=== PATIENT | male | born 1935 | race Caucasian/White ===

== ENCOUNTER 2020-01-15 10:16 | Emergency (ER) | payer MEDICARE, OTHER, SELFPAY ==
[2020-01-15 09:59] VITALS: BP 176/120; PULSE 87; RESP 16; O2SAT 96; BMI 28.8
--- NOTE | 2020-01-15 10:07 | ED_ITS ---
Entered by Shirley Groves, acting as scribe for Itz David MD HPI - Neuro Symptoms/Deficit General: Chief Complaint: Neuro Symptoms/Deficit Stated Complaint: slurred speech,AMS Time Seen by Provider: 01/15/20 10:11 Source: patient, family (son), EMS and old records reviewed Mode of arrival: EMS Limitations: other (poor historian) History of Present Illness: Time: 08:45 Last Observed Normal: 08:45 Timing confirmed by: family member Location: speech (expressive aphasia) History of same: Yes (TIA hx) Severity: moderate Relieving factors: none Exacerbating factors: none Context: gradual onset Associated symptoms: Reports weakness (mild bilateral legs); Deny headache(s) or vertigo Treatments Prior to Arrival: other (IV by EMS) Review of Systems General: Reports: 10 or more systems reviewed and unremarkable except in HPI and below Neuro: Reports: difficulty communicating thoughts (expressive aphasia (I could think of it but it came out a jumble)); Denies: headache, numbness in extremities, weakness in extremities, changes in sensation, lack of coordination, difficulty walking, vertigo, confusion, behavioral changes, seizure-like activity, involuntary movements or restless legs PFSH ED PFSH: Social History Smoking and tobacco status: former smoker NIH stroke score NIHSS: Limb Ataxia - 7: Absent (1) Best Language - 9: Mild/Moderate Aphasia (1) Physical Exam Const: COMMON NORMALS: no apparent distress, oriented x3, no limitations, alert and well nourished EXAM LIMITATIONS: no altered mental status GENERAL APPEARANCE: cooperative and well kempt ORIENTATION/CONSCIOUSNESS: Yes awake, Yes oriented to person, Yes oriented to place and Yes oriented to time; not confused HENMT: COMMON NORMALS: normocephalic, head/scalp atraumatic, external ears normal and external nose normal HEAD & SCALP: normal to inspection, normocephalic and atraumatic FACE & SINUS: normal facial exam and face symmetric NOSE: external nose normal EXTERNAL EAR: Yes external ears normal MOUTH: lip normal; no muffled voice Eye: COMMON NORMALS: PERRL, EOMs intact bilaterally and conjunctivae normal GENERAL EYE: normal appearance of both eyes CONJUNCTIVA: Yes conjunctivae normal PUPIL: Yes PERRL and Yes pinpoint bilaterally Neck/C-Spine: COMMON NORMALS: no meningeal signs and no JVD GENERAL: Yes normal visual inspection and Yes trachea midline Chest: COMMONS NORMALS: inspection of chest normal Resp: COMMON NORMALS: normal respiratory effort, no retractions, no use of accessory muscles and clear to auscultation bilaterally EFFORT & INSPECTION: Yes able to speak in complete sentences and Yes symmetric chest movement AUSCULTATION: clear to auscultation bilaterally Cardio: COMMON NORMALS: no JVD and regular rate RATE: regular rate RHYTHM: abnormal rhythm with ectopic beats PERIPHERAL PULSES: radial pulses present GI: COMMON NORMALS: soft to palpation INSPECTION: Yes normal to inspection PALPATION: Yes soft, No tender and No guarding Back/Pelvis: COMMON NORMALS: thoraco-lumbar ROM normal Extremity: COMMON NORMALS: normal to inspection GENERAL: Yes normal exam except as noted Neuro: COMMON NORMALS: oriented x3, moves all extremities, no focal motor deficits and no sensory deficits noted SENSORIUM/ORIENTATION: Yes alert, Yes oriented to person, Yes oriented to place and Yes oriented to time MENINGEAL SIGNS: Yes no meningeal signs CRANIAL NERVES: Yes CN normal except as noted COORDINATION/BALANCE: [id number] test normal and No jaiz-lp-[id number] test normal (hard to do with gout in right knee vs ataxia RLE) SPEECH: expressive aphasia (very mild at this point, few items he cannot recall name) GAIT: Yes antalgic (at baseline per family) SENSORY EXAM: No sensory level loss detected MOTOR EXAM: strength 5/5 throughout, no tremor noted, no asterixis, muscle tone normal throughout and No strength abnormal COORDINATION: ibeyws-dw-[id number] test normal and [id number]-[id number] test abnormal (hard to do with gout in right knee vs ataxia RLE) Psych: COMMON NORMALS: mental status grossly normal, thought process normal, cooperative, affect normal and speech normal APPEARANCE: Yes well kempt SPEECH: Yes normal speech THOUGHT PROCESS: normal thought process Skin: COMMON NORMALS: no rashes or lesions noted, skin turgor normal and no jaundice GENERAL SKIN EXAM: no rashes or lesions noted and turgor normal Course Vital Signs: Vital signs: Vital Signs Pulse Rate 87 01/15/20 09:59 Respiratory Rate 16 01/15/20 09:59 Blood Pressure 176/120 01/15/20 09:59 Pulse Oximetry 96 01/15/20 09:59 MDM - Neuro Symptoms/Deficit MDM Narrative: Medical decision making narrative: Patient's NIH score is 2. He gets 1 point for mild expressive aphasia and one-point for mild ataxia in the right lower extremity. However, his ataxia in the right lower extremity may be due to hip and knee pain. He does not have any other focal deficits. I discussed the case with Dr. Pagan. We both agree that the patient is not a good candidate for TPA. 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 He is on all the appropriate medications. CT scan of the head was read by the radiologist and myself. He has chronic changes but no acute findings. Chest x- ray stable. Labs essentially at their baseline. I consulted with the patient and the son. The patient was ambulated. There was no lasting deficit noted by the family. Symptoms seem to resolve around 1015. The patient and his son were given options for admission for observation but they both would prefer discharge as the patient is staying at a residential facility and has rapid access to medical care if required. Lab Data: Labs: Lab Results 01/15/20 01/15/20 01/15/20 Range/Units 10:30 10:30 10:30 WBC 7.4 (4.0-10.0) 10^3/ uL RBC 4.13 (4.1-5.3) 10^6/u L Hgb 11.7 (11.7-16.6) g/dL Hct 38.6 L (42.0-52.0) % MCV 93.5 (80-94) fL MCH 28.3 (28.0-34.0) pg MCHC 30.3 (30.0-36.0) g/dL RDW 14.9 (12.1-15.1) % Plt Count 211 (130-400) 10^3/c mm MPV 12.0 H (7.4-10.4) fL Neut % (Auto) 56.6 % Lymph % (Auto) 26.8 % [place] % (Auto) 11.3 % Eos % (Auto) 4.4 % Baso % (Auto) 0.5 % Neut # (Auto) 4.2 (1.8-7.7) 10^3/u L Lymph # (Auto) 2.0 (0.8-4.8) 10^3/u L [place] # (Auto) 0.8 (0.2-0.9) 10^3/u L Eos # (Auto) 0.3 (0.0-0.8) 10^3/u L Baso # (Auto) 0.0 (0.0-0.1) 10^3/u L Nucleated RBC % (a uto) 0 % Nucleated RBCs # 0.0 /100WBC PT 13.60 H (10.5-13.3) SECO NDS INR 1.01 (0.8-1.2) APTT 30.1 (23.9-36.7) SECO NDS Sodium 139 (136-145) mmol/L Potassium 3.7 (3.5-5.1) mmol/L Chloride 99 (98-107) mmol/L Carbon Dioxide 26 (22-29) mmol/L Anion Gap 17.7 (5-19) BUN 19 (8-23) mg/dL Creatinine 1.1 (0.7-1.2) mg/dL Glucose 145 H (65-115) mg/dL Calcium 9.5 (8.5-10.5) mg/dL Total Bilirubin 0.4 (0.15-1.2) mg/dL AST 11 (0-40) U/L ALT 6 (0-41) U/L Alkaline Phosphata se 95 (40-130) IU/L Total Protein 7.8 (6.6-8.7) g/dL Albumin 3.7 (3.5-5.2) g/dL Globulin 4.1 (1.3-4.6) g/dL Discharge Plan Discharge Patient Disposition: Xfer SNF Clinical Impression: Transient cerebral ischemia Qualifiers: Transient cerebral ischemia type: carotid artery syndrome (hemispheric) Qualified Code(s): G45.1 - Carotid artery syndrome (hemispheric) Condition: Stable Discharge Orders: Discharge Order (Routine); Ordered 01/15/20 Ordered By: Itz David Referrals: Fran Garcia DO [Primary Care Provider] - 1 week (F/u ED visit for TIA: symptoms were expressive aphasia for one hour) Discharge Diet: Usual diet Discharge Activity: Resume usual activity Patient Instructions: Transient Ischemic Attack (ED) Coding Level of Care Code ED Adjunct Instructor for g Fwd Exam Comprehensive The documentation recorded by the Germain elkins Bridget Annette, accurately reflects the service I personally performed and the decisions made by me, Izt David MD Jan 15, 2020 10:16
--- NOTE | 2020-01-15 10:09 | CT_ITS ---
WS: [id number] CT HEAD NONCONTRAST HISTORY: POSS CVA TECHNIQUE: Contiguous axial imaging performed through the brain in 2.5 mm imaging. Bone and soft tiss ue windows. Sagittal and coronal reformats reviewed. All CT scans at [facility] use at le ast one of these dose optimization techniques: automated exposure control; mA and/or kV adjustment pe r patient size (includes targeted exams where dose is matched to clinical indication); or iterative r econstruction. DLP: 903.57 mGy-cm. COMPARISON: 10/19/2019 No acute intracranial hemorrhage, midline shift or mass effect. Moderate atrophy with moderate chronic microvascular ischemic changes. There are numerous small lacun ar infarcts in the basal ganglia and external capsules and along the insular ribbons. No significant progression of disease. Ventricles: Dilated ventricles and extra-axial spaces on the basis of atrophy. Paranasal sinuses: As visualized are clear. Mastoid air cells: Well pneumatized. Calvarium and scalp: Skull is intact with no soft tissue edema or swelling. Notified Itz David MD at 01/15/2020 10:[address]/CT head wo con* [id number] IMPRESSION: 1. No acute intracranial hemorrhage, edema or midline shift. 2. Moderate atrophy with chronic ischemic changes and prior lacunar.
--- NOTE | 2020-01-15 10:18 | XR_ITS ---
WS: [id number] XR chest 1V portable [id number] REASON FOR EXAM: stroke w/u FINDINGS: Arteriosclerotic changes in the arch of the aorta. Sternotomy changes. The lung burgos appear to be well aerated. No congestion, pneumonia, pneumothorax, or mass effect. XR/XR chest 1V portable [id number] IMPRESSION: Arteriosclerotic changes Previous coronary bypass.
[2020-01-15 10:37] LABS: Basophils % 0.5 %; Eosinophils # 0.3 10^3/uL (0.0-0.8); Eosinophils % 4.4 %; Hematocrit 38.6 % (42.0-52.0); Hemoglobin 11.7 g/dL (11.7-16.6); Lymphocytes % 26.8 %; Mean Corpuscular HGB Conc 30.3 g/dL (30.0-36.0); Mean Corpuscular Hemoglobin 28.3 pg (28.0-34.0); Mean Corpuscular Volume 93.5 fL (80-94); Monocytes # 0.8 10^3/uL (0.2-0.9); Monocytes % 11.3 %; Neutrophils # 4.2 10^3/uL (1.8-7.7); Neutrophils % 56.6 %; Nucleated Red Blood Cells % 0 %; Platelet Count 211 10^3/cmm (130-400); Red Blood Count 4.13 10^6/uL (4.1-5.3); Red Cell Distribution Width 14.9 % (12.1-15.1); White Blood Count 7.4 10^3/uL (4.0-10.0)
[2020-01-15 10:46] LABS: INR 1.01 (0.8-1.2)
[2020-01-15 10:47] LABS: Partial Thromboplastin Time 30.1 SECONDS (23.9-36.7)
--- NOTE | 2020-01-15 10:48 | PC.NURSE ---
Ambulation Patient and son report patient has gout flare up in right knee. Knee is swollen and red. Patient ambulated to check for new ataxia given current TIA symptoms. Patient ambulated 20 ft with standby assist, obvious weakness to right leg. Patient and son report this is normal walking for him and that he is not weaker than normal. RLE ataxia likely due to gout flare up. notified.
[2020-01-15 10:54] LABS: Alanine Aminotransferase 6 U/L (0-41); Albumin Level 3.7 g/dL (3.5-5.2); Alkaline Phosphatase 95 IU/L (40-130); Anion Gap 17.7 (5-19); Aspartate Amino Transferase 11 U/L (0-40); Blood Urea Nitrogen 19 mg/dL (8-23); Calcium 9.5 mg/dL (8.5-10.5); Carbon Dioxide 26 mmol/L (22-29); Chloride 99 mmol/L (98-107); Globulin 4.1 g/dL (1.3-4.6); Glucose 145 mg/dL (65-115); Potassium 3.7 mmol/L (3.5-5.1); Sodium 139 mmol/L (136-145); Total Bilirubin 0.4 mg/dL (0.15-1.2); Total Protein 7.8 g/dL (6.6-8.7)
[2020-01-15] MEDS: aspirin 325 mg Tablet PO (11:31)
--- NOTE | 2020-01-15 11:41 | PC.NURSE ---
Patient states he feels resolved. Family at bedside and unable to detect speech disturbance. Repeat NIHSS: Zero
[2020-01-15 11:52] VITALS: BP 140/85; PULSE 70; RESP 15; O2SAT 97
== END 2020-01-15 11:53 | disposition skilled nursing facility (03) ==
PROVIDERS: Emergency Provider Emergency Medicine; Family Provider Family Medicine; PCP Family Medicine
DX: G45.9 Transient cerebral ischemic attack, unspecified (principal); Z87.891 Personal history of nicotine dependence
CPT/HCPCS: 36415; 70450; 71045; 80053; 85025; 85610; 85730; 99282; 99284

== ENCOUNTER 2020-06-03 11:39 | Emergency (ER) | payer MEDICARE, OTHER, SELFPAY ==
[2020-06-03 11:40] VITALS: BMI 29.4
[2020-06-03 11:45] VITALS: BP 189/99; PULSE 72; RESP 18; TEMP 36.8; O2SAT 95
--- NOTE | 2020-06-03 11:49 | ED_ITS ---
HPI - Fall General: Chief Complaint: Fall Stated Complaint: HEMATOMA Time Seen by Provider: 06/03/20 11:45 History of Present Illness: HPI Narrative: 84-year-old male presents via EMS after a fall at the group home. He stumbled and then fell forward he hit his head on the carpet. He is a large hematoma there. He denies full loss of consciousness he states I just fell . He said he stumbled and then in trying to catch his balance he had a fall forward where he felt like he could not maintain his balance and took several steps forward before he actually fell. complaint: fall Onset (ago): minute(s) Fall from: standing Fall witnessed: yes, by living facility staff Place fall occurred: group home/SNF Loss of consciousness: None Prolonged down time: no Symptoms prior to fall: none Context: tripped/slipped Location of injury: head Severity: moderate Associated symptoms-after fall: Reports no associated symptoms; Denies abdominal pain or chest pain Review of Systems Const: Denies: fever(s), chills, body aches, change in appetite, fatigue or malaise ENMT: Denies: throat pain, ear or mastoid pain, nasal discharge or nasal congestion Card: Denies: chest pain, edema, dyspnea on exertion or orthopnea Resp: Denies: dyspnea, productive cough or non-productive cough GI: Denies: abdominal pain, nausea, vomiting, hematemesis, coffee ground emesi s, diarrhea, constipation, bloating, hematochezia or melena : Denies: flank pain, dysuria, urinary frequency or urinary urgency Skin/Breast: Denies: rash or pruritus PFSH ED PFSH: Medical History (Updated 06/03/20 @ 13:33 by Jean Grubbs DO) CVA (cerebral vascular accident) Diabetes Hyperlipidemia Hypertension Surgical History (Updated 06/03/20 @ 13:34 by Jean Grubbs DO) History of coronary artery bypass graft 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 Social History Smoking and tobacco status: former smoker Physical Exam Const: COMMON NORMALS: no acute distress GENERAL APPEARANCE: cooperative and comfortable ORIENTATION/CONSCIOUSNESS: Yes awake, Yes oriented to person, Yes oriented to place and Yes oriented to time HENMT: COMMON NORMALS: normocephalic, atraumatic, hearing grossly normal bilaterally, external ears normal, EAC's normal, TM's normal bilaterally, Normal nasal mucous membranes and turbinates present, moist oral mucous membranes and oropharynx normal HEAD & SCALP: normocephalic and atraumatic NOSE: Normal nasal mucous membranes and turbinates present EXTERNAL EAR: Yes external ears normal EXTERNAL AUDITORY CANAL: EAC's normal TYMPANIC MEMBRANE: TM's normal bilaterally Eye: COMMON NORMALS: Equal, round and reactive pupils present, EOMs intact bilaterally, conjunctivae normal and no scleral icterus CONJUNCTIVA: Yes conjunctivae normal PUPIL: Yes Equal, round and reactive pupils present Neck/C-Spine: COMMON NORMALS: full ROM, no lymphadenopathy, supple and no JVD Lymph: LYMPHATIC: no lymphadenopathy noted and no lymphedema noted Resp: COMMON NORMALS: normal respiratory effort, No retractions, No use of accessory muscles and clear to auscultation bilaterally AUSCULTATION: clear to auscultation bilaterally Cardio: COMMON NORMALS: no JVD, regular rate, regular rhythm and No murmurs present (Cardio) RATE: regular rate RHYTHM: regular rhythm GI: COMMON NORMALS: Soft to palpation and No hepatosplenomegaly present AUSCULTATION: Yes normoactive bowel sounds PALPATION: Yes Soft to palpation, No Tenderness to palpation present (GI), No Guarding due to palpation present (GI) and Yes No hepatosplenomegaly present Extremity: COMMON NORMALS: normal to inspection, capillary refill normal, no clubbing, cyanosis or edema, no calf tenderness and no pedal edema Neuro: SENSORIUM/ORIENTATION: Yes oriented to person, Yes oriented to place and Yes oriented to time Skin: COMMON NORMALS: no rashes or lesions noted GENERAL SKIN EXAM: no rashes or lesions noted Course Vital Signs: Vital signs: Vital Signs Temperature 98.2 F 06/03/20 13:45 Pulse Rate 83 06/03/20 13:45 Respiratory Rate 16 06/03/20 13:45 Blood Pressure 160/84 06/03/20 13:45 Pulse Oximetry 97 06/03/20 13:45 MDM - Fall MDM Narrative: Medical decision making narrative: We will go and discharge patient back to the group home. Discussed with him that he will get significant bruising around the eyes and swelling he can use ice for that no change in medications. Lab Data: Labs: Lab Results 06/03/20 06/03/20 06/03/20 Range/Units 11:22 11:22 11:22 WBC 7.4 (4.0-10.0) 10^3/ uL RBC 4.30 (4.1-5.3) 10^6/u L Hgb 12.8 (11.7-16.6) g/dL Hct 41.8 L (42.0-52.0) % MCV 97.2 H (80-94) fL MCH 29.8 (28.0-34.0) pg MCHC 30.6 (30.0-36.0) g/dL RDW 14.8 (12.1-15.1) % Plt Count 256 (130-400) 10^3/c mm MPV 12.2 H (7.4-10.4) fL Neut % (Auto) 45.2 % Lymph % (Auto) 36.5 % [place] % (Auto) 11.0 % Eos % (Auto) 5.8 % Baso % (Auto) 0.8 % Neut # (Auto) 3.33 (1.8-7.7) 10^3/u L Lymph # (Auto) 2.7 (0.8-4.8) 10^3/u L [place] # (Auto) 0.8 (0.2-0.9) 10^3/u L Eos # (Auto) 0.4 (0.0-0.8) 10^3/u L Baso # (Auto) 0.1 (0.0-0.1) 10^3/u L Nucleated RBC % (a uto) 0 % Nucleated RBCs # 0.0 /100WBC PT 12.80 (10.5-13.3) SECO NDS INR 0.93 (0.8-1.2) APTT 27.7 (23.9-36.7) SECO NDS Sodium 141 (136-145) mmol/L Potassium 4.3 (3.5-5.1) mmol/L Chloride 99 (98-107) mmol/L Carbon Dioxide 30 H (22-29) mmol/L Anion Gap 16.3 (5-19) BUN 18 (8-23) mg/dL Creatinine 1.2 (0.7-1.2) mg/dL Glucose 103 (65-115) mg/dL Calculated Osmolal ity 289 (285-295) mOsm/k g Calcium 9.4 (8.5-10.5) mg/dL Total Bilirubin 0.3 (0.15-1.2) mg/dL AST 12 (0-40) U/L ALT 8 (0-41) U/L Alkaline Phosphata se 96 (40-130) IU/L Total Protein 7.4 (6.6-8.7) g/dL Albumin 4.3 (3.5-5.2) g/dL Globulin 3.1 (1.3-4.6) g/dL Discharge Plan Discharge Patient Disposition: Xfer Other Clinical Impression: Fall against object, Concussion without loss of consciousness Condition: Stable Referrals: Fran Garcia, [Primary Care Provider] - Discharge Diet: Usual diet Discharge Activity: Increase activity as tolerated Activity Restrictions/Additional Instructions: Follow-up with your primary care doctor as needed. Ice to forehead 20 minutes 4 times a day Discharge Date/Time: 06/03/20 13:50 Coding Level of Care Code ED Adult And Pediatric Neurologist for Jeanne Fwd Exam Comprehensive
--- NOTE | 2020-06-03 12:00 | CT_ITS ---
WS: [id number] CT HEAD NONCONTRAST HISTORY: Fall, closed head injury TECHNIQUE: Contiguous axial imaging performed through the brain in 2.5 mm imaging. Bone and soft tiss ue windows. Sagittal and coronal reformats reviewed. All CT scans at [facility] use at le ast one of these dose optimization techniques: automated exposure control; mA and/or kV adjustment pe r patient size (includes targeted exams where dose is matched to clinical indication); or iterative r econstruction. DLP: 1225.15 mGy.cm COMPARISON: 01/15/2020 No acute intracranial hemorrhage, midline shift or mass effect. Moderate atrophy with significant chronic microvascular ischemic changes. Extensive bilateral lacunar infarcts in the basal ganglia. Extensive chronic white matter ischemic disease. Ventricles: Ventricles and extra-axial spaces are prominent on the basis of atrophy. Paranasal sinuses: As visualized are clear. Mastoid air cells: Well pneumatized. Calvarium and scalp: No calvarial fracture. There is a large hyperdense scalp hematoma centered over the LEFT frontal bone. CT/CT head wo con* [id number] IMPRESSION: 1. No acute intracranial hemorrhage or edema. 2. Large LEFT frontal scalp hematoma. 3. Atrophy with extensive chronic ischemic disease and bilateral lacunar infar cts.
--- NOTE | 2020-06-03 12:00 | ECG_ITS ---
[facility] Test Date: 2020-06-03 Pat Name: Eric Fields Department: Room: Gender: Male Beaming Inspector: : 1935 Requested By: Jean Reese Order Number: [id number] Jessy MD: Mauricio Parikh M.D. Measurements Intervals [place] Rate: 71 P: 82 KS: 193 QRS: -23 QRSD: 118 T: 72 QT: 414 QTc: 451 Interpretive Statements SINUS RHYTHM BORDERLINE LEFT AXIS DEVIATION [QRS AXIS < -20] MODERATE INTRAVENTRICULAR CONDUCTION DELAY [110+ ms QRS DURATION] MODERATE VOLTAGE CRITERIA FOR LVH, CONSIDER NORMAL VARIANT [MEETS CRITERIA IN ONE OF: R(aVL), S(V1), R(V5), R(V5/V6)+S(V1)] NONSPECIFIC T-WAVE ABNORMALITY Compared to ECG 10/19/2019 15:11:01 Intraventricular conduction delay now present T-wave abnormality now present Electronically Signed On 06-04-2020 16:24:35 CDT by Mauricio Parikh M.D. [id number]
--- NOTE | 2020-06-03 12:10 | CT_ITS ---
WS: [id number] CT CERVICAL SPINE HISTORY: fall TECHNIQUE: Contiguous 2.5 mm axial imaging performed through the entire cervical spine. Sagittal and coronal reformats also performed. All CT scans at [facility] use at least one of these do se optimization techniques: automated exposure control; mA and/or kV adjustment per patient size (inc ludes targeted exams where dose is matched to clinical indication); or iterative reconstruction. DLP: 961.22 mGy.cm COMPARISON: MRI 01/19/2017 Increased in the cervical lordosis. Craniocervical junction is normally aligned. Lateral masses of C1 and C2 are aligned. Fusion between the LEFT facet joints at C2-3, C4-5 and C5-6. No acute fractures are identified. Vertebral body osteophytes encroach upon the LEFT lateral thecal sac at C3-4. Multile charly facet joint arthritis and osteophytic ridging resulting in multilevel mild to moderate bilateral foraminal stenosis. Lung apices are clear. CT/CT cervical spin wo con* [id number] IMPRESSION: 1. No acute cervical fracture. 2. 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
[2020-06-03 12:20] LABS: Basophils # 0.1 10^3/uL (0.0-0.1); Basophils % 0.8 %; Eosinophils # 0.4 10^3/uL (0.0-0.8); Eosinophils % 5.8 %; Hematocrit 41.8 % (42.0-52.0); Hemoglobin 12.8 g/dL (11.7-16.6); Lymphocytes # 2.7 10^3/uL (0.8-4.8); Lymphocytes % 36.5 %; Mean Corpuscular HGB Conc 30.6 g/dL (30.0-36.0); Mean Corpuscular Hemoglobin 29.8 pg (28.0-34.0); Mean Corpuscular Volume 97.2 fL (80-94); Mean Platelet Volume 12.2 fL (7.4-10.4); Monocytes # 0.8 10^3/uL (0.2-0.9); Neutrophils # 3.33 10^3/uL (1.8-7.7); Neutrophils % 45.2 %; Nucleated Red Blood Cells % 0 %; Platelet Count 256 10^3/cmm (130-400); Red Cell Distribution Width 14.8 % (12.1-15.1); White Blood Count 7.4 10^3/uL (4.0-10.0)
[2020-06-03 12:26] LABS: INR 0.93 (0.8-1.2)
[2020-06-03 12:27] LABS: Partial Thromboplastin Time 27.7 SECONDS (23.9-36.7)
[2020-06-03 12:33] LABS: Alanine Aminotransferase 8 U/L (0-41); Albumin Level 4.3 g/dL (3.5-5.2); Alkaline Phosphatase 96 IU/L (40-130); Anion Gap 16.3 (5-19); Aspartate Amino Transferase 12 U/L (0-40); Blood Urea Nitrogen 18 mg/dL (8-23); Calcium 9.4 mg/dL (8.5-10.5); Carbon Dioxide 30 mmol/L (22-29); Chloride 99 mmol/L (98-107); Globulin 3.1 g/dL (1.3-4.6); Glucose 103 mg/dL (65-115); Osmolality Calculated 289 mOsm/kg (285-295); Potassium 4.3 mmol/L (3.5-5.1); Sodium 141 mmol/L (136-145); Total Bilirubin 0.3 mg/dL (0.15-1.2); Total Protein 7.4 g/dL (6.6-8.7)
[2020-06-03 13:45] VITALS: BP 160/84; PULSE 83; RESP 16; TEMP 36.8; O2SAT 97
== END 2020-06-03 13:50 | disposition other institution (70) ==
PROVIDERS: Emergency Provider Family Medicine; PCP Family Medicine
DX: S06.0X0A Concussion without loss of consciousness, initial encounter (principal); W01.198A Fall on same level from slipping, tripping and stumbling with subsequent striking against other object, initial encounter; Z86.73 Personal history of transient ischemic attack (TIA), and cerebral infarction without residual deficits; E11.9 Type 2 diabetes mellitus without complications; E78.5 Hyperlipidemia, unspecified; I10 Essential (primary) hypertension; Z95.1 Presence of aortocoronary bypass graft; Z87.891 Personal history of nicotine dependence
CPT/HCPCS: 12345; 70450; 72125; 80053; 85025; 85610; 85730; 93005; 99282; 99283

== ENCOUNTER 2021-01-22 08:03 | Emergency (ER) | payer MEDICARE, OTHER, SELFPAY ==
[2021-01-22 08:04] VITALS: BP 169/87; PULSE 75; RESP 16; TEMP 36.8; O2SAT 94; BMI 28.6
--- NOTE | 2021-01-22 08:05 | CT_ITS ---
WS: [id number] CT HEAD TECHNIQUE: Noncontrast CT of the head obtained from the skullbase to the vertex. CLINICAL INFORMATION: Symptoms of Acute Stroke COMPARISON: June 03, 2020 DLP: All CT scans at [facility] use at least one of these dose optimization techniques: automat ed exposure control; mA and/or kV adjustment per patient size (includes targeted exams where dose is matched to clinical indication); or iterative reconstruction. FINDINGS: No evidence of intracranial hemorrhage or mass effect. Ventricular system and basal cisterns are sauer nt. Moderate small vessel changes with moderate parenchymal volume loss. Chronic lacunar infarcts in the periventricular white matter. No extra-axial fluid collections. No evidence of mass or mass effec t. Normal guardado-white differentiation. Paranasal sinuses and mastoid air cells are well aerated. .Normal visualized soft tissues. CT/CT head wo con* [id number] IMPRESSION: 1. No evidence of intracranial hemorrhage or mass effect. 2. Moderate small vessel changes. Moderate parenchymal volume loss. 3. No acute intracranial findings. Attempted Jean Grubbs DO at 01/22/2021 8:20 AM.
--- NOTE | 2021-01-22 08:05 | ECG_ITS ---
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 Measurements Intervals [place] Rate: 76 P: 98 SD: 176 QRS: -25 QRSD: 125 T: 122 QT: 389 QTc: 438 Interpretive Statements SINUS RHYTHM BORDERLINE LEFT AXIS DEVIATION [QRS AXIS < -20] MODERATE INTRAVENTRICULAR CONDUCTION DELAY [110+ ms QRS DURATION] MODERATE VOLTAGE CRITERIA FOR LVH, CONSIDER NORMAL VARIANT [MEETS CRITERIA IN ONE OF: R(aVL), S(V1), R(V5), R(V5/V6)+S(V1)] NONSPECIFIC T-WAVE ABNORMALITY Compared to ECG 06/03/2020 12:39:40 No significant changes Electronically Signed On 01-22-2021 18:56:28 [employer] by Josefina Villagomez M.D. [id number]
[2021-01-22 08:16] VITALS: BP 169/87; PULSE 77; RESP 18; TEMP 37.1; O2SAT 94
[2021-01-22 08:20] LABS: Basophils # 0.1 10^3/uL (0.0-0.1); Basophils % 0.6 %; Eosinophils # 0.4 10^3/uL (0.0-0.8); Eosinophils % 4.2 %; Hematocrit 40.4 % (42.0-52.0); Hemoglobin 12.6 g/dL (11.7-16.6); Lymphocytes # 1.6 10^3/uL (0.8-4.8); Lymphocytes % 19.8 %; Mean Corpuscular HGB Conc 31.2 g/dL (30.0-36.0); Mean Corpuscular Hemoglobin 30.4 pg (28.0-34.0); Mean Corpuscular Volume 97.6 fL (80-94); Mean Platelet Volume 12.5 fL (7.4-10.4); Monocytes # 0.7 10^3/uL (0.2-0.9); Neutrophils # 5.55 10^3/uL (1.8-7.7); Nucleated Red Blood Cells % 0 %; Platelet Count 201 10^3/cmm (130-400); Red Blood Count 4.14 10^6/uL (4.1-5.3); Red Cell Distribution Width 13.9 % (12.1-15.1); White Blood Count 8.3 10^3/uL (4.0-10.0)
[2021-01-22 08:25] LABS: Glucose Point of Care 135 mg/dL (70-110)
--- NOTE | 2021-01-22 08:25 | ED_ITS ---
HPI - Neuro Symptoms/Deficit General: Chief Complaint: Neuro Symptoms/Deficit Stated Complaint: Stroke like s/s Time Seen by Provider: 01/22/21 08:05 History of Present Illness: HPI Narrative: 85-year-old male presents to the emergency room with complaint of right-sided facial weakness. He has had some speech difficulties that started 3 days ago. He has had strokes in the past. 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 He denies chest pain denies shortness of breath. He does answer questions however he has difficulty with time and place. His son is at the bedside letter reviewed with him whether or not he would want aggressive interventions he defers to his father he says that as long as his father can say yes or no he would decide. Onset (ago): unknown Timing confirmed by: caregiver Location: right face Severity: mild Quality: weak Relieving factors: time Exacerbating factors: none Associated symptoms: Reports weakness; Deny chest pain, cough, diaphoresis, fevers/chills, headache(s), anorexia, malaise, nausea, seizures, short of breath, syncope, tingling, vertigo or vomiting Treatments Prior to Arrival: none Review of Systems Const: Denies: malaise or diaphoresis ENMT: Denies: throat pain, ear or mastoid pain, nasal discharge or nasal congestion Card: Denies: chest pain or syncope Resp: Denies: dyspnea, productive cough or non-productive cough GI: Denies: nausea or vomiting : Denies: flank pain, dysuria, urinary frequency or urinary urgency Skin/Breast: Denies: rash or pruritus Neuro: Denies: headache(s) or vertigo PFS ED PFSH: Medical History CVA (cerebral vascular accident) Diabetes Hyperlipidemia Hypertension Surgical History History of coronary artery bypass graft S/P percutaneous transluminal angioplasty ([employer]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 Social History Smoking and tobacco status: former smoker Physical Exam Const: COMMON NORMALS: no acute distress GENERAL APPEARANCE: cooperative and comfortable ORIENTATION/CONSCIOUSNESS: Yes oriented to person, Yes oriented to place and Yes oriented to time HENMT: COMMON NORMALS: normocephalic, atraumatic and hearing grossly normal bilaterally HEAD & SCALP: normocephalic and atraumatic Neck/C-Spine: COMMON NORMALS: no JVD Resp: COMMON NORMALS: normal respiratory effort, No retractions, No use of accessory muscles and clear to auscultation bilaterally AUSCULTATION: clear to auscultation bilaterally Cardio: COMMON NORMALS: no JVD, regular rate, regular rhythm and No murmurs present (Cardio) RATE: regular rate RHYTHM: regular rhythm GI: COMMON NORMALS: Soft to palpation and No hepatosplenomegaly present AUSCULTATION: Yes normoactive bowel sounds PALPATION: Yes Soft to palpation, No Tenderness to palpation present (GI), No Guarding due to palpation present (GI) and Yes No hepatosplenomegaly present Extremity: COMMON NORMALS: normal to inspection, capillary refill normal, no clubbing, cyanosis or edema, no calf tenderness and no pedal edema Neuro: SENSORIUM/ORIENTATION: Yes oriented to person, Yes oriented to place and Yes oriented to time Skin: COMMON NORMALS: no rashes or lesions noted GENERAL SKIN EXAM: no rashes or lesions noted Course Vital Signs: Vital signs: Vital Signs Temperature 98.7 F 01/22/21 11:31 Pulse Rate 88 01/22/21 11:31 Respiratory Rate 18 01/22/21 11:31 Blood Pressure 166/91 01/22/21 11:31 Pulse Oximetry 98 01/22/21 11:31 MDM - Neuro Symptoms/Deficit MDM Narrative: Medical decision making narrative: Rotted duplex does not show any new findings. There is evidence of left vertebral artery occlusion. Otherwise carotid are not significantly stenotic. He is beyond any timeframe where he could be considered a candidate for either TPA or embolectomy. Additionally he has stroke score is fairly low. After discussion with the son we will go and discharge him back to the shelter we will increase him to full aspirin daily continue Plavix. Lab Data: Labs: Lab Results 01/22/21 01/22/21 01/22/21 Range/Units 08:00 08:00 08:00 WBC 8.3 (4.0-10.0) 10^3/ uL RBC 4.14 (4.1-5.3) 10^6/u L Hgb 12.6 (11.7-16.6) g/dL Hct 40.4 L (42.0-52.0) % MCV 97.6 H (80-94) fL MCH 30.4 (28.0-34.0) pg MCHC 31.2 (30.0-36.0) g/dL RDW 13.9 (12.1-15.1) % Plt Count 201 (130-400) 10^3/c mm MPV 12.5 H (7.4-10.4) fL Neut % (Auto) 67.0 % Lymph % (Auto) 19.8 % [place] % (Auto) 8.0 % Eos % (Auto) 4.2 % Baso % (Auto) 0.6 % Neut # (Auto) 5.55 (1.8-7.7) 10^3/u L Lymph # (Auto) 1.6 (0.8-4.8) 10^3/u L [place] # (Auto) 0.7 (0.2-0.9) 10^3/u L Eos # (Auto) 0.4 (0.0-0.8) 10^3/u L Baso # (Auto) 0.1 (0.0-0.1) 10^3/u L Nucleated RBC % (a uto) 0 % Nucleated RBCs # 0.0 /100WBC PT 13.80 (12.1-14.9) SECO NDS INR 1.03 (0.8-1.2) APTT 25.6 (23.9-36.7) SECO NDS Sodium 138 (136-145) mmol/L Potassium 4.5 (3.5-5.1) mmol/L Chloride 99 (98-107) mmol/L Carbon Dioxide 28 (22-29) mmol/L Anion Gap 15.5 (5-19) BUN 26 H (8-23) mg/dL Creatinine 1.1 (0.7-1.2) mg/dL GFR Calculation Not Reportable Glucose 156 H (65-115) mg/dL POC Glucose (70-110) mg/dL Calculated Osmolal ity 294 (285-295) mOsm/k g Calcium 9.6 (8.5-10.5) mg/dL Total Bilirubin 0.4 (0.15-1.2) mg/dL AST 13 (0-40) U/L ALT 10 (0-41) U/L Alkaline Phosphata se 94 (40-130) IU/L Total Protein 7.3 (6.6-8.7) g/dL Albumin 4.1 (3.5-5.2) g/dL Globulin 3.2 (1.3-4.6) g/dL Urine Color (Yellow) Urine Appearance (CLEAR) Urine pH (5-7) Ur Specific Gravit y (1.005-1.030) Urine Protein (Negative) Urine Glucose (UA) (Normal) Urine Ketones (Negative) Urine Blood (Negative) Urine Nitrate (Negative) Urine Bilirubin (Negative) Urine Urobilinogen (Negative) mg/dL Ur Leukocyte Tammy ase (Negative) 01/22/21 01/22/21 Range/Units 08:23 09:03 WBC (4.0-10.0) 10^3/ uL RBC (4.1-5.3) 10^6/u L Hgb (11.7-16.6) g/dL Hct (42.0-52.0) % MCV (80-94) fL MCH (28.0-34.0) pg MCHC (30.0-36.0) g/dL RDW (12.1-15.1) % Plt Count (130-400) 10^3/c mm MPV (7.4-10.4) fL Neut % (Auto) % Lymph % (Auto) % [place] % (Auto) % Eos % (Auto) % Baso % (Auto) % Neut # (Auto) (1.8-7.7) 10^3/u L Lymph # (Auto) (0.8-4.8) 10^3/u L [place] # (Auto) (0.2-0.9) 10^3/u L Eos # (Auto) (0.0-0.8) 10^3/u L Baso # (Auto) (0.0-0.1) 10^3/u L Nucleated RBC % (a uto) % Nucleated RBCs # /100WBC PT (12.1-14.9) SECO NDS INR (0.8-1.2) APTT (23.9-36.7) SECO NDS Sodium (136-145) mmol/L Potassium (3.5-5.1) mmol/L Chloride (98-107) mmol/L Carbon Dioxide (22-29) mmol/L Anion Gap (5-19) BUN (8-23) mg/dL Creatinine (0.7-1.2) mg/dL GFR Calculation Glucose (65-115) mg/dL POC Glucose 135 H (70-110) mg/dL Calculated Osmolal ity (285-295) mOsm/k g Calcium (8.5-10.5) mg/dL Total Bilirubin (0.15-1.2) mg/dL AST (0-40) U/L ALT (0-41) U/L Alkaline Phosphata se (40-130) IU/L Total Protein (6.6-8.7) g/dL Albumin (3.5-5.2) g/dL Globulin (1.3-4.6) g/dL Urine Color Yellow (Yellow) Urine Appearance Clear (CLEAR) Urine pH 5 (5-7) Ur Specific Gravit y 1.015 (1.005-1.030) Urine Protein Neg (Negative) Urine Glucose (UA) Norm (Normal) Urine Ketones Negative (Negative) Urine Blood Neg (Negative) Urine Nitrate Negative (Negative) Urine Bilirubin Neg (Negative) Urine Urobilinogen Norm (Negative) mg/dL Ur Leukocyte Tammy ase Negative (Negative) Discharge Plan Discharge Patient Disposition: Home Clinical Impression: Cerebrovascular accident, Benign essential HTN Condition: Stable Prescriptions: New aspirin 325 mg tablet 325 mg PO DAILY Qty: 60 RF: 0 Discontinued indomethacin 50 mg Capsule 50 mg PO BID PRN (Reason: GOUT) RF: 0 aspirin 81 mg Tablet,Chewable 81 mg PO DAILY RF: 0 No Action losartan 50 mg Tablet 50 mg PO DAILY RF: 0 atorvastatin 80 mg Tablet 80 mg PO DAILY RF: 0 hydrocodone-acetaminophen 5-325 mg Tablet 1 tab PO Q4H PRN (Reason: Pain) RF: 0 clopidogrel [Plavix] 75 mg Tablet 75 mg PO DAILY RF: 0 magnesium hydroxide [Milk of Magnesia] 400 mg/5 mL Suspension 30 ml PO DAILY PRN (Reason: Constipation) RF: 0 tamsulosin [Flomax] 0.4 mg Capsule 0.4 mg PO DAILY RF: 0 bisacodyl [Dulcolax (bisacodyl)] 10 mg Suppository 10 mg NM DAILY PRN (Reason: Constipation) RF: 0 furosemide [Lasix] 20 mg Tablet 20 mg PO DAILY RF: 0 acetaminophen [Tylenol] 325 mg Capsule 650 mg PO Q4H PRN (Reason: Pain) RF: 0 diclofenac sodium [Voltaren] 1 % Gel 4 g TOPICAL TID PRN (Reason: Pain) RF: 0 omega 2-iko-pkj-fish oil [Fish Oil] 300-1,000 mg Capsule 1 cap PO DAILY RF: 0 metformin 500 mg Tablet 500 mg PO BID RF: 0 metoprolol succinate 50 mg Tablet Extended Release 24 Hr 50 mg PO DAILY RF: 0 citalopram 10 mg Tablet 10 mg PO DAILY RF: 0 Discharge Orders: Discharge ED (Routine); Ordered 01/22/21 Ordered By: Jean Grubbs Patient Instructions: Opioid Safety Coding Level of Care Code ED Plant Science Professor for Jeanne Fwd Exam Comprehensive
[2021-01-22 08:28] VITALS: BP 185/98; PULSE 69; RESP 18; O2SAT 95
[2021-01-22 08:30] LABS: INR 1.03 (0.8-1.2); Partial Thromboplastin Time 25.6 SECONDS (23.9-36.7)
[2021-01-22 08:42] LABS: Alanine Aminotransferase 10 U/L (0-41); Albumin Level 4.1 g/dL (3.5-5.2); Alkaline Phosphatase 94 IU/L (40-130); Anion Gap 15.5 (5-19); Aspartate Amino Transferase 13 U/L (0-40); Blood Urea Nitrogen 26 mg/dL (8-23); Calcium 9.6 mg/dL (8.5-10.5); Carbon Dioxide 28 mmol/L (22-29); Chloride 99 mmol/L (98-107); Globulin 3.2 g/dL (1.3-4.6); Glucose 156 mg/dL (65-115); Osmolality Calculated 294 mOsm/kg (285-295); Potassium 4.5 mmol/L (3.5-5.1); Sodium 138 mmol/L (136-145); Total Bilirubin 0.4 mg/dL (0.15-1.2); Total Protein 7.3 g/dL (6.6-8.7)
[2021-01-22 09:06] VITALS: BP 180/100; PULSE 74; RESP 18; O2SAT 98
--- NOTE | 2021-01-22 09:08 | PC.NURSE ---
States he took BP meds this morning. Son states 180/100 is normal for my dad
[2021-01-22 09:09] LABS: Add Urine Microscopic? NO
[2021-01-22 09:21] LABS: Bilirubin Urine Neg (Negative); Blood Urine Neg (Negative); Glucose Urine UA Norm (Normal); Ketones Urine Negative (Negative); Leukocyte Esterase Urine Negative (Negative); Nitrate Urine Negative (Negative); Protein Urine Neg (Negative); Specific Gravity, Urine 1.015 (1.005-1.030); Urine Appearance Clear (CLEAR); Urine Color Yellow (Yellow); Urobilinogen Urine Norm (Negative); pH Urine 5 (5-7)
--- NOTE | 2021-01-22 09:42 | USCV_ITS ---
Eric Fields Age: 85 Gender: M : 1935 Exam Date: 01/22/2021 10:00 Ordering Phys: Jean Grubbs DO Technologist: Georgie Nayak [place] [facility] [place]ication: STROKE Risk Factors: Previous Vascular Surgery: Right Brachial BP: / Left Brachial BP: / Right Left Velocity (cm/s) Spectral Plaque Velocity (cm/s) Spectral Plaque Syst/Diast Broadening Syst/Diast Broadening 86.60/ 9.20 Prox CCA 86.30 / 8.40 89.30/ 20.90 Mid CCA 73.90 / 9.90 85.40/ 13.70 Distal CCA 69.20 / 12.80 48.00/ 11.20 Prox ICA 121.30/ 22.10 50.80/ 14.20 Mid ICA 100.90/ 19.80 62.00/ 19.40 Distal ICA 66.30 / 21.90 94.00 ECA 76.00 0.69 ICA/CCA 1.41 Antegrade Vertebral Retrograde 33.40/ 10.10 cm/s 18.60/ 6.20 cm/s Tri Subclavian Tri 82.70 140.7 0 CONCLUSIONS Right ICA stenosis <50%. Left ICA stenosis <50%. Normal antegrade Doppler flow noted in the right vertebral artery. Retrograde Doppler flow noted in the left vertebral artery. 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
--- NOTE | 2021-01-22 09:56 | PC.NURSE ---
US in room, son at bedside.
[2021-01-22 10:00] VITALS: BP 172/76; PULSE 70; RESP 18; O2SAT 98
--- NOTE | 2021-01-22 10:09 | PC.NURSE ---
Will assess Neuro assessment after US completes procedure.
[2021-01-22 11:31] VITALS: BP 166/91; PULSE 88; RESP 18; TEMP 37.1; O2SAT 98
== END 2021-01-22 11:33 | disposition home or self-care (01) ==
PROVIDERS: Emergency Provider Family Medicine
DX: I63.9 Cerebral infarction, unspecified (principal); I10 Essential (primary) hypertension; Z79.82 Long term (current) use of aspirin; Z79.02 Long term (current) use of antithrombotics/antiplatelets; Z79.84 Long term (current) use of oral hypoglycemic drugs; E11.9 Type 2 diabetes mellitus without complications; E78.5 Hyperlipidemia, unspecified; Z95.1 Presence of aortocoronary bypass graft; Z87.891 Personal history of nicotine dependence; Z86.73 Personal history of transient ischemic attack (TIA), and cerebral infarction without residual deficits
CPT/HCPCS: 36416; 70450; 80053; 81003; 82962; 85025; 85610; 85730; 93005; 93880; 99284

== ENCOUNTER 2021-01-25 11:44 | Emergency (ER) | payer MEDICARE, OTHER, SELFPAY ==
[2021-01-25 11:46] VITALS: BP 177/85; PULSE 59; RESP 18; TEMP 36.6; O2SAT 93; BMI 31.1
[2021-01-25 12:03] VITALS: BP 148/82; PULSE 62; RESP 25; O2SAT 94
--- NOTE | 2021-01-25 12:05 | W.ED.EXTPRO ---
HPI - Extremity Problem General: Chief complaint: Extremity Injury, Lower Stated complaint: STUBBED TOE Time Seen by Provider: 01/25/21 12:01 History of Present Illness: HPI Narrative: Patient arrives via ambulance complaint about infection the right great toe. Patient history of stroke high blood pressure. Patient states that he caught his toe on his jeans when he tried to put him on the other day and pulled his toenail back now his toe was red he denies any pain does complain of swelling denies any other problems. MD Complaint: extremity swelling Onset (ago): day(s) Location: right and toe Severity scale (1-10): 1 Quality: other (Red and swollen) Radiation: none Associated symptoms: Reports no associated symptoms; Deny chest pain, fever(s) or rash Review of Systems Const: Denies: fever(s), chills or body aches Eyes: Denies: change in vision or blurry vision ENMT: Denies: throat pain or nasal congestion Card: Denies: chest pain or dyspnea on exertion Resp: Denies: dyspnea, productive cough or non-productive cough GI: Denies: abdominal pain, nausea or vomiting : Denies: difficulty urinating Musc: Denies: extremity pain Skin/Breast: Reports: erythema and skin swelling (Right great toe times few days); Denies: rash Neuro: Denies: headache(s) Psych: Denies: anxiety or depression Michele/Lymph: Denies: easy bruising [facility] ED PFSH: Medical History CVA (cerebral vascular accident) Diabetes Hyperlipidemia Hypertension Surgical History History of coronary artery bypass graft S/P percutaneous transluminal angioplasty ([employer]) with stent placement Social History Smoking and tobacco status: former smoker Physical Exam Const: COMMON NORMALS: no acute distress Extremity: RIGHT LOWER EXTREMITY: Yes foot & digits (Right great toe with redness that does not extend into the tarsals) Right foot and digits: Yes ROM (No pain with range of motion, bone is intact and movable) and Yes other (Nail is thickened, appears bent been pulled back, mild erythema) Psych: COMMON NORMALS: mental status grossly normal Course Vital Signs: Vital signs: Vital Signs Temperature 97.8 F 01/25/21 11:46 Pulse Rate 62 01/25/21 13:10 Respiratory Rate 18 01/25/21 13:10 Blood Pressure 141/72 01/25/21 13:10 Pulse Oximetry 95 01/25/21 13:10 MDM - Extremity (Nontraumatic) MDM Narrative: Medical decision making narrative: Patient caught the toenail on his jeans. Most likely pulled toenail back. Does not appear to be yeast like infection but does have erythema on the toe and around the toe. Nail was thickened. No active drainage. Bone is intact has full range of motion toe with no pain. Epson salt soaks will probably benefit in the past. Discharge Plan Discharge Patient Disposition: Home Clinical Impression: Cellulitis of great toe of right foot Condition: Stable Prescriptions: New Keflex 500 mg capsule 500 mg PO TID 7 Days Qty: 21 RF: 0 No Action losartan 50 mg Tablet 50 mg PO DAILY RF: 0 atorvastatin 80 mg Tablet 80 mg PO DAILY RF: 0 hydrocodone-acetaminophen 5-325 mg Tablet 1 tab PO Q4H PRN (Reason: Pain) RF: 0 clopidogrel [Plavix] 75 mg Tablet 75 mg PO DAILY RF: 0 magnesium hydroxide [Milk of Magnesia] 400 mg/5 mL Suspension 30 ml PO DAILY PRN (Reason: Constipation) RF: 0 tamsulosin [Flomax] 0.4 mg Capsule 0.4 mg PO DAILY RF: 0 bisacodyl [Dulcolax (bisacodyl)] 10 mg Suppository 10 mg AL DAILY PRN (Reason: Constipation) RF: 0 furosemide [Lasix] 20 mg Tablet 20 mg PO DAILY RF: 0 acetaminophen [Tylenol] 325 mg Capsule 650 mg PO Q4H PRN (Reason: Pain) RF: 0 diclofenac sodium [Voltaren] 1 % Gel 4 g TOPICAL TID PRN (Reason: Pain) RF: 0 omega 5-opj-ajd-fish oil [Fish Oil] 300-1,000 mg Capsule 1 cap PO DAILY RF: 0 metformin 500 mg Tablet 500 mg PO BID RF: 0 metoprolol succinate 50 mg Tablet Extended Release 24 Hr 50 mg PO DAILY RF: 0 citalopram 10 mg Tablet 10 mg PO DAILY RF: 0 aspirin 325 mg tablet 325 mg PO DAILY Qty: 60 RF: 0 Discharge Orders: Discharge ED (Routine); Ordered 01/25/21 Ordered By: Casimiro Pollard Discharge Diet: Usual diet Discharge Activity: Resume usual activity Patient Instructions: Cellulitis (ED) Activity Restrictions/Additional Instructions: Follow-up with medical provider as directed. Take medications as prescribed. Return to the ER or your medical provider if condition worsens. Please read and understand discharge instructions. If any questions ask please. Georgina aceves in Epson salts Coding Level of Care Code ED Care Management Associate for Chg Fwd Exam Expanded Problem Focused
[2021-01-25] MEDS: cefTRIAXone 1,000 MG in lidocaine 1% 2.1 ML 1 MG IM (12:27)
[2021-01-25 13:10] VITALS: BP 141/72; PULSE 62; RESP 18; O2SAT 95
== END 2021-01-25 13:17 | disposition home or self-care (01) ==
PROVIDERS: Emergency Provider Nurse Practitioner Family
DX: L03.031 Cellulitis of right toe (principal); Z79.82 Long term (current) use of aspirin; Z79.02 Long term (current) use of antithrombotics/antiplatelets; Z79.84 Long term (current) use of oral hypoglycemic drugs; Z86.73 Personal history of transient ischemic attack (TIA), and cerebral infarction without residual deficits; E11.9 Type 2 diabetes mellitus without complications; E78.5 Hyperlipidemia, unspecified; I10 Essential (primary) hypertension; Z95.1 Presence of aortocoronary bypass graft; Z87.891 Personal history of nicotine dependence
CPT/HCPCS: 99282; J0696

== ENCOUNTER 2021-02-20 17:09 | Outpatient (CLI) | payer MEDICARE, OTHER, SELFPAY | END 2021-02-20 17:10 | disposition home or self-care (01) | PROVIDERS: Visit Provider Family Medicine | DX: R60.9 Edema, unspecified (principal); E11.9 Type 2 diabetes mellitus without complications | CPT/HCPCS: 84550 ==

== ENCOUNTER 2021-04-02 13:19 | Emergency (ER) | payer MEDICARE, OTHER, SELFPAY ==
[2021-04-02 13:22] VITALS: BP 161/90; PULSE 77; RESP 18; TEMP 36.6; O2SAT 94; BMI 29.5
--- NOTE | 2021-04-02 13:30 | XR_ITS ---
WS: [id number] Portable AP upright chest, 04/02/2021 Clinical Data: chest pain, fall Comparison: Portable chest, 01/15/2020. Findings: No nodules, masses or effusions are seen. The heart is normal. The pulmonary vascularity is not increased. No pneumonia or pneumothorax is seen. The aortic arch and descending aorta are tortuo us. There are midline sternotomy sutures and mediastinal clips. XR/XR chest 1V portable [id number] Impression: Atherosclerosis.
--- NOTE | 2021-04-02 13:30 | CT_ITS ---
WS: [id number] CT HEAD TECHNIQUE: Noncontrast CT of the head obtained from the skullbase to the vertex. CLINICAL INFORMATION: right sided weakness COMPARISON: January 22, 2021 DLP: 3140.[address] scans at [facility] use at least one of these dose optimization techniques: automat ed exposure control; mA and/or kV adjustment per patient size (includes targeted exams where dose is matched to clinical indication); or iterative reconstruction. FINDINGS: No evidence of intracranial hemorrhage or mass effect. Ventricular system and basal cisterns are sauer nt. Moderate small vessel changes with moderate parenchymal volume loss. Chronic lacunar infarcts in the basal ganglia. No extra-axial fluid collections. No evidence of mass or mass effect. Normal guardado- white differentiation. Paranasal sinuses and mastoid air cells are well aerated. .Normal visualized soft tissues. CT/CT head wo con* [id number] IMPRESSION: 1. No evidence of intracranial hemorrhage or mass effect. 2. Moderate small vessel changes. Moderate parenchymal volume loss. 3. No acute intracranial findings. Notified Figueroa Deleon DO at 04/02/2021 2:41 PM.
--- NOTE | 2021-04-02 13:31 | ECG_ITS ---
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 Measurements Intervals Makinen Rate: 91 P: -52 MO: 136 QRS: -30 QRSD: 122 T: 56 QT: 377 QTc: 466 Interpretive Statements Atrial fibrillation with a controlled ventricular response rate BORDERLINE LEFT AXIS DEVIATION [QRS AXIS < -20] MODERATE INTRAVENTRICULAR CONDUCTION DELAY [110+ ms QRS DURATION] MODERATE VOLTAGE CRITERIA FOR LVH, CONSIDER NORMAL VARIANT [MEETS CRITERIA IN ONE OF: R(aVL), S(V1), R(V5), R(V5/V6)+S(V1)] NONSPECIFIC T-WAVE ABNORMALITY Compared to ECG 01/22/2021 08:15:21 The atrial fibrillation appears to be new Electronically Signed On 04-03-2021 10:09:41 CDT by Matteo Mercado M.D. [id number]
[2021-04-02 14:01] LABS: Basophils % 0.5 %; Eosinophils # 0.3 10^3/uL (0.0-0.8); Eosinophils % 3.6 %; Hematocrit 42.6 % (42.0-52.0); Hemoglobin 13.6 g/dL (11.7-16.6); Lymphocytes # 1.7 10^3/uL (0.8-4.8); Lymphocytes % 23.4 %; Mean Corpuscular HGB Conc 31.9 g/dL (30.0-36.0); Mean Corpuscular Hemoglobin 31.5 pg (28.0-34.0); Mean Corpuscular Volume 98.6 fL (80-94); Mean Platelet Volume 12.2 fL (7.4-10.4); Monocytes % 13.2 %; Neutrophils # 4.35 10^3/uL (1.8-7.7); Neutrophils % 58.9 %; Nucleated Red Blood Cells % 0 %; Platelet Count 218 10^3/cmm (130-400); Red Blood Count 4.32 10^6/uL (4.1-5.3); Red Cell Distribution Width 14.5 % (12.1-15.1); White Blood Count 7.4 10^3/uL (4.0-10.0)
[2021-04-02 14:15] LABS: INR 0.87 (0.8-1.2)
[2021-04-02 14:16] LABS: Partial Thromboplastin Time 27.1 SECONDS (23.9-36.7)
[2021-04-02 14:27] VITALS: BP 151/85; PULSE 72; RESP 21; O2SAT 95
--- NOTE | 2021-04-02 15:22 | W.ED.NEUROSD ---
HPI - Neuro Symptoms/Deficit General: Chief Complaint: Neuro Symptoms/Deficit Stated Complaint: R SIDED WEAKNESS Time Seen by Provider: 04/02/21 13:25 History of Present Illness: HPI Narrative: 85-year-old male presents with right-sided weakness. 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 He had a stroke about a month ago and has been going downhill since then. Patient has some new right-sided facial droop and upper and lower extremity weakness. Patient currently resides in a long-term. 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 Patient has limited verbal ability due to a prior stroke. His last known well time was around 1 AM this morning. Patient had fall this morning try to get out of bed unassisted. He complained of a little bit chest wall pain following the fall. Associated symptoms: Reports chest pain (Chest wall); Deny nausea or vomiting Review of Systems Const: Denies: fever(s) or chills Eyes: Denies: change in vision ENMT: Denies: throat pain Card: Reports: chest pain (Chest wall); Denies: palpitations Resp: Denies: dyspnea or productive cough GI: Denies: abdominal pain, nausea or vomiting : Denies: difficulty urinating Skin/Breast: Denies: rash Neuro: Reports: other (Please see HPI) Psych: Reports: anxiety and depression PFSH ED PFSH: Medical History CVA (cerebral vascular accident) Diabetes Hyperlipidemia Hypertension Surgical History History of coronary artery bypass graft 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 Social History Smoking and tobacco status: former smoker NIH stroke score NIHSS: Level Of Consciousness - 1a: 0 Facial Palsy - 4: Minor Paralysis Motor Arm Right - 5: No Effort Against [place] Motor Arm Left - 5: No Drift Motor Leg Right - 6: No Effort Against [place] Motor Leg Left - 6: No Drift Best Language - 9: No Aphasia (Known aphasia) Dysarthia - 10: Mild/Moderate Dysarthia (No dysarthria) Extinction And Inattention - 11: 0 Physical Exam Const: COMMON NORMALS: no acute distress HENMT: COMMON NORMALS: hearing grossly normal bilaterally FACE & SINUS: other Eye: COMMON NORMALS: Equal, round and reactive pupils present PUPIL: Yes Equal, round and reactive pupils present Resp: COMMON NORMALS: normal respiratory effort, No use of accessory muscles and clear to auscultation bilaterally AUSCULTATION: clear to auscultation bilaterally Cardio: COMMON NORMALS: regular rate and regular rhythm RATE: regular rate RHYTHM: regular rhythm GI: COMMON NORMALS: Normal to inspection, nondistended, normoactive bowel sounds present, Soft to palpation and non-tender PALPATION: Yes Soft to palpation Extremity: NARRATIVE EXTREMITY EXAM: Patient with decreased strength on his right side both upper and lower extremities, normal left-sided exam Neuro: SPEECH: Other neuro speech findings (Patient with baseline speech deficit from prior stroke, no acute changes) GAIT: Yes Unable to assess gait MOTOR EXAM: Other motor observations present (Decreased strength ) Skin: COMMON NORMALS: no rashes or lesions noted GENERAL SKIN EXAM: no rashes or lesions noted Course Vital Signs: Vital signs: Vital Signs Temperature 97.9 F 04/02/21 13:22 Pulse Rate 72 04/02/21 14:27 Respiratory Rate 21 H 04/02/21 14:27 Blood Pressure 151/85 04/02/21 14:27 Pulse Oximetry 95 04/02/21 14:27 MDM - Neuro Symptoms/Deficit MDM Narrative: Medical decision making narrative: Discussed with family. They would prefer patient just be discharged back to the long-term. Patient has known history of strokes with recurrent strokes. This time they do not want to pursue any further treatment. They have PT OT available to them at their long-term. Patient is stable upon discharge with some right-sided weakness. We did discuss possible hospice care which they will consider once back to the long-term. Lab Data: Attestation: I reviewed the patient's lab results. Labs: Lab Results 04/02/21 04/02/21 04/02/21 Range/Units 13:41 13:41 13:41 WBC 7.4 (4.0-10.0) 10^3/ uL RBC 4.32 (4.1-5.3) 10^6/u L Hgb 13.6 (11.7-16.6) g/dL Hct 42.6 (42.0-52.0) % MCV 98.6 H (80-94) fL MCH 31.5 (28.0-34.0) pg MCHC 31.9 (30.0-36.0) g/dL RDW 14.5 (12.1-15.1) % Plt Count 218 (130-400) 10^3/c mm MPV 12.2 H (7.4-10.4) fL Neut % (Auto) 58.9 % Lymph % (Auto) 23.4 % [place] % (Auto) 13.2 % Eos % (Auto) 3.6 % Baso % (Auto) 0.5 % Neut # (Auto) 4.35 (1.8-7.7) 10^3/u L Lymph # (Auto) 1.7 (0.8-4.8) 10^3/u L [place] # (Auto) 1.0 H (0.2-0.9) 10^3/u L Eos # (Auto) 0.3 (0.0-0.8) 10^3/u L Baso # (Auto) 0.0 (0.0-0.1) 10^3/u L Nucleated RBC % (a uto) 0 % Nucleated RBCs # 0.0 /100WBC PT 12.10 (12.1-14.9) SECO NDS INR 0.87 (0.8-1.2) APTT 27.1 (23.9-36.7) SECO NDS Sodium 142 (136-145) mmol/L Potassium 4.8 (3.5-5.1) mmol/L Chloride 102 (98-107) mmol/L Carbon Dioxide 27 (22-29) mmol/L Anion Gap 17.8 (5-19) BUN 22 (8-23) mg/dL Creatinine 1.0 (0.7-1.2) mg/dL GFR Calculation Not Reportable Glucose 117 H (65-115) mg/dL Calculated Osmolal ity 298 H (285-295) mOsm/k g Calcium 9.3 (8.5-10.5) mg/dL Total Bilirubin 0.3 (0.15-1.2) mg/dL AST 22 (0-40) U/L ALT 12 (0-41) U/L Alkaline Phosphata se 118 (40-130) IU/L Total Protein 7.5 (6.6-8.7) g/dL Albumin 4.4 (3.5-5.2) g/dL Globulin 3.1 (1.3-4.6) g/dL Imaging Data^: CT Head: Radiologist's impression: No acute finding EKG Data^: EKG 1: Attestation: I personally reviewed and interpreted this EKG as follows: EKG interpretation date: 04/02/21 EKG interpretation time: 13:43 Interpretation: Heart rate 91, sinus rhythm with PVCs. Nonspecific T wave changes, no acute findings Discharge Plan Discharge Patient Disposition: Home Clinical Impression: Cerebrovascular accident Qualifiers: CVA mechanism: thrombosis Precerebral and cerebral artery: unspecified cerebral artery Qualified Code(s): I63.30 - Cerebral infarction due to thrombosis of unspecified cerebral artery Condition: Stable Prescriptions: No Action losartan 50 mg Tablet 50 mg PO DAILY RF: 0 atorvastatin 80 mg Tablet 80 mg PO BEDTIME RF: 0 clopidogrel [Plavix] 75 mg Tablet 75 mg PO DAILY RF: 0 magnesium hydroxide [Milk of Magnesia] 400 mg/5 mL Suspension 30 ml PO DAILY PRN (Reason: Constipation) RF: 0 tamsulosin [Flomax] 0.4 mg Capsule 0.4 mg PO BEDTIME RF: 0 bisacodyl [Dulcolax (bisacodyl)] 10 mg Suppository 10 mg AL DAILY PRN (Reason: Constipation) RF: 0 furosemide [Lasix] 20 mg Tablet 20 mg PO DAILY RF: 0 acetaminophen [Tylenol] 325 mg Capsule 650 mg PO Q4H PRN (Reason: Pain) RF: 0 diclofenac sodium [Voltaren] 1 % Gel 4 g TOPICAL TID PRN (Reason: Pain) RF: 0 omega 0-ijg-sxz-fish oil [Fish Oil] 300-1,000 mg Capsule 1 cap PO DAILY RF: 0 hydrocodone-acetaminophen 5-325 mg Tablet 1 tab PO Q4H PRN (Reason: Pain) RF: 0 indomethacin 50 mg Capsule 50 mg PO BID PRN (Reason: gout) RF: 0 Fleet Enema 19-7 gram/118 mL Enema 118 ml AL DAILY PRN (Reason: Constipation) RF: 0 Nitrostat 0.4 mg Tablet, Sublingual 0.4 mg SUBLINGUAL Q5M PRN (Reason: Chest Pain) RF: 0 Miralax 17 gram/dose Powder 17 g PO DAILY RF: 0 metformin 500 mg Tablet 500 mg PO BID RF: 0 metoprolol succinate 50 mg Tablet Extended Release 24 Hr 50 mg PO DAILY RF: 0 aspirin 325 mg tablet 325 mg PO DAILY Qty: 60 RF: 0 Discharge Orders: Discharge ED (Routine); Ordered 04/02/21 Ordered By: Figueroa Deleon Discharge Diet: Advance as tolerated Discharge Activity: Increase activity as tolerated Patient Instructions: Ischemic Stroke (GEN), Opioid Safety Coding Level of Care Code ED Criminal Profiler for Jeanne Fwd Exam Comprehensive
[2021-04-02 16:00] LABS: Alanine Aminotransferase 12 U/L (0-41); Albumin Level 4.4 g/dL (3.5-5.2); Alkaline Phosphatase 118 IU/L (40-130); Anion Gap 17.8 (5-19); Aspartate Amino Transferase 22 U/L (0-40); Blood Urea Nitrogen 22 mg/dL (8-23); Calcium 9.3 mg/dL (8.5-10.5); Carbon Dioxide 27 mmol/L (22-29); Chloride 102 mmol/L (98-107); Globulin 3.1 g/dL (1.3-4.6); Glucose 117 mg/dL (65-115); Osmolality Calculated 298 mOsm/kg (285-295); Potassium 4.8 mmol/L (3.5-5.1); Sodium 142 mmol/L (136-145); Total Bilirubin 0.3 mg/dL (0.15-1.2); Total Protein 7.5 g/dL (6.6-8.7)
--- NOTE | 2021-04-02 16:00 | PC.NURSE ---
pt report called to Loreta AYALA at [facility] in SBAR format.
[2021-04-02 16:32] VITALS: BP 181/99; PULSE 84; RESP 18; O2SAT 95
== END 2021-04-02 17:53 | disposition home or self-care (01) ==
PROVIDERS: Emergency Provider Student in an Organized Health Care Education/Training Program
DX: I63.30 Cerebral infarction due to thrombosis of unspecified cerebral artery (principal); Z79.84 Long term (current) use of oral hypoglycemic drugs; Z79.02 Long term (current) use of antithrombotics/antiplatelets; Z79.82 Long term (current) use of aspirin; E11.9 Type 2 diabetes mellitus without complications; E78.5 Hyperlipidemia, unspecified; I10 Essential (primary) hypertension; Z95.1 Presence of aortocoronary bypass graft; Z87.891 Personal history of nicotine dependence
CPT/HCPCS: 70450; 71045; 80053; 84484; 85025; 85610; 85730; 93005; 99284

== ENCOUNTER 2021-07-29 18:33 | Inpatient (IN) | payer MEDICARE, OTHER, SELFPAY ==
[2021-07-29] VITALS (8 sets, daily range): BP systolic 132–171; BP diastolic 70–90; PULSE 67–78; RESP 18–20; TEMP 36.1–37; O2SAT 96–100; BMI 28.7
[2021-07-29 18:56] LABS: Glucose Point of Care 442 mg/dL (70-110)
--- NOTE | 2021-07-29 19:07 | ECG_ITS ---
[facility] Test Date: 2021-07-29 Pat Name: Eric Fields Department: Room: Gender: Male Bun Panner: : 1935 Requested By: Marianne Bardales Order Number: [id number] Jessy MD: Matteo Mercado M.D. Measurements Intervals [place] Rate: 62 P: 60 NV: 195 QRS: -30 QRSD: 125 T: 60 QT: 393 QTc: 401 Interpretive Statements SINUS RHYTHM VOLTAGE CRITERIA FOR LVH [MEETS CRITERIA IN ONE OF: R(aVL), S(V1), R(V5), R(V5/V6)+S(V1)] POSSIBLE SEPTAL MYOCARDIAL INFARCTION , PROBABLY OLD [30 ms Q WAVE IN V1/V2] Compared to ECG 04/02/2021 13:43:40 Myocardial infarct finding now present Atrial fibrillation no longer present Intraventricular conduction delay no longer present T-wave abnormality no longer present Electronically Signed On 07-29-2021 23:53:31 CDT by Matteo Mercado M.D. [id number] f
[2021-07-29 19:31] LABS: ABG PCO2 44.3 mmHg (35-45); Arterial Blood Gas Hematocrit 44.2 % (42-52); Base Excess ABG 1.7 mmol/L (-2.0-2.0); Blood Gas Operator Identificat HARKR; Blood Gas Sample Site Brachial, left; Blood Gas Sample Type Arterial; HCO3 ABG 27.1 mmol/L (22-26); Oxygen Device ROOM AIR; PO2 ABG 65.5 mmHg (80.0-100.0)
--- NOTE | 2021-07-29 19:55 | ED_ITS ---
HPI - General Adult General: Chief complaint: Recheck/Abnormal Lab/Rx Stated complaint: HIGH BLOOD SUGAR Time Seen by Provider: 07/29/21 18:36 History of Present Illness: HPI narrative: 85-year-old male with history of diabetes, hypertension, CAD, baseline dementia from prior CVA who presents the emergency room for concerns of hyperglycemia and not acting right. Per son, patient seems more tired today than before. Patient currently resides in a [facility] and was noted to have a glucose of 495 was brought forward to the emergency room for evaluation. Of note, patient recently restarted on Metformin. Patient has no focal complaints. Rest of history limited by cognitive exam. Onset: unknown Duration:ongoing Location:home Severity:mild Review of Systems Narrative: Constitutional: No fever, no chills. +increased fatigue HEENT: No vision changes CV: No chest pain, no palpitations PULM: no cough, no dyspnea. GI: No abdominal pain, no N/V/D. : No dysuria MSKEL: No muscle pain SKIN: No new rashes, no lesions. NEURO: No headache, no focal weakness. 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 Social History Smoking and tobacco status: former smoker Physical Exam Narrative: EXAM NARRATIVE: Head: Atraumatic Eyes: PERRL, conjunctiva without injection ENT: Mucous membrane moist NECK: Supple, ROM intact LUNGS: LCTAB, no crackles/rhonchi CV: RRR ABDOMEN: Soft, nontender in all quadrants EXTREMITY: Normal ROM SKIN: No rash or erythema NEURO: Awake and alert, no focal motor deficits PSYCH: Normal mood and affect Course Vital Signs: Vital signs: Vital Signs Temperature 97 F L 07/29/21 20:04 Pulse Rate 71 07/29/21 20:04 Respiratory Rate 20 H 07/29/21 20:04 Blood Pressure 153/84 07/29/21 20:04 Pulse Oximetry 99 07/29/21 20:04 MDM - General Adult MDM Narrative: Medical decision making narrative: 85-year-old male with history of diabetes, hypertension, CAD who presents the emergency room for evaluation of hyperglycemia and generalized weakness. Per son, patient has been acting increasingly weak. On exam patient is hemodynamically stable without any focal findings. Patient received 500 cc of saline, and 5 unit of insulins aspart. Work-up today including troponin, EKG, CBC, CMP, Lipase, and UA. Troponin of 177, EARLINE on CKD, creatine of 2.2 from 1.2 EKG showing regular sinus rhythm at HT of [62]. Normal axis. No ST elevations/depressions to suggest coronary occlusion. Normal VA, QRS, QT intervals. S/p ASA, heparin drip. No complaints of chest pain. Glucose improved on reassessment. Disposition: Admission Lab Data: Labs: Lab Results 07/29/21 07/29/21 07/29/21 Range/Units 18:53 19:21 19:50 WBC Cancelled Corrected WBC Cancelled RBC Cancelled Hgb Cancelled Hct Cancelled MCV Cancelled MCH Cancelled MCHC Cancelled RDW Cancelled Plt Count Cancelled MPV Cancelled Gran % Cancelled Neut % (Auto) Cancelled Lymph % (Auto) Cancelled [place] % (Auto) Cancelled Eos % (Auto) Cancelled Baso % (Auto) Cancelled Neut # (Auto) Cancelled Lymph # (Auto) Cancelled [place] # (Auto) Cancelled Eos # (Auto) Cancelled Baso # (Auto) Cancelled Absolute Gran (aut o) Cancelled Nucleated RBC % (a uto) Cancelled Nucleated RBCs # Cancelled Specimen Type Arterial Sample Site Brachial, left ABG pH 7.40 (7.35-7.45) ABG pCO2 44.3 (35-45) mmHg ABG pO2 65.5 L (80.0-100.0) mmH g ABG HCO3 27.1 H (22-26) mmol/L ABG Base Excess 1.7 (-2.0-2.0) mmol/ L Andrea Test N/a Hematocrit 44.2 (42-52) % O2 Delivery Device Room air FiO2 21.0 % Cyber Forensic Specialist ID Harkr Sodium (136-145) mmol/L Potassium (3.5-5.1) mmol/L Chloride (98-107) mmol/L Carbon Dioxide (22-29) mmol/L Anion Gap (5-19) BUN (8-23) mg/dL Creatinine (0.7-1.2) mg/dL GFR Calculation Glucose (65-115) mg/dL POC Glucose 442 H (70-110) mg/dL Calculated Osmolal ity (285-295) mOsm/k g Calcium (8.5-10.5) mg/dL Total Bilirubin (0.15-1.2) mg/dL AST (0-40) U/L ALT (0-41) U/L Alkaline Phosphata se (40-130) IU/L Troponin T Gen 5 n g/L (0-15) ng/L Total Protein (6.6-8.7) g/dL Albumin (3.5-5.2) g/dL Globulin (1.3-4.6) g/dL Lipase (13-60) U/L Urine Color (Yellow) Urine Appearance (CLEAR) Urine pH (5-7) Ur Specific Gravit y (1.005-1.030) Urine Protein (Negative) Urine Glucose (UA) (Normal) Urine Ketones (Negative) Urine Blood (Negative) Urine Nitrate (Negative) Urine Bilirubin (Negative) Urine Urobilinogen (Negative) mg/dL Ur Leukocyte Tammy ase (Negative) Urine RBC Urine WBC Ur Squamous Epith Cells Amorphous Sediment Urine Bacteria 07/29/21 07/29/21 07/29/21 Range/Units 19:50 19:57 20:02 WBC Corrected WBC RBC Hgb Hct MCV MCH MCHC RDW Plt Count MPV Gran % Neut % (Auto) Lymph % (Auto) [place] % (Auto) Eos % (Auto) Baso % (Auto) Neut # (Auto) Lymph # (Auto) [place] # (Auto) Eos # (Auto) Baso # (Auto) Absolute Gran (aut o) Nucleated RBC % (a uto) Nucleated RBCs # Specimen Type Sample Site ABG pH (7.35-7.45) ABG pCO2 (35-45) mmHg ABG pO2 (80.0-100.0) mmH g ABG HCO3 (22-26) mmol/L ABG Base Excess (-2.0-2.0) mmol/ L Andrea Test Hematocrit (42-52) % O2 Delivery Device FiO2 % Cyber Forensic Specialist ID Sodium 149 H (136-145) mmol/L Potassium 5.6 H (3.5-5.1) mmol/L Chloride 109 H (98-107) mmol/L Carbon Dioxide 24 (22-29) mmol/L Anion Gap 21.6 H (5-19) BUN 80 H (8-23) mg/dL Creatinine 2.2 H (0.7-1.2) mg/dL GFR Calculation Not Reportable Glucose 373 H (65-115) mg/dL POC Glucose (70-110) mg/dL Calculated Osmolal ity 347 H (285-295) mOsm/k g Calcium 9.3 (8.5-10.5) mg/dL Total Bilirubin 0.3 (0.15-1.2) mg/dL AST 14 (0-40) U/L ALT 13 (0-41) U/L Alkaline Phosphata se 120 (40-130) IU/L Troponin T Gen 5 n g/L 177 H* (0-15) ng/L Total Protein 7.4 (6.6-8.7) g/dL Albumin 3.7 (3.5-5.2) g/dL Globulin 3.7 (1.3-4.6) g/dL Lipase 116 H (13-60) U/L Urine Color Straw (Yellow) Urine Appearance Clear (CLEAR) Urine pH 5 (5-7) Ur Specific Gravit y 1.015 (1.005-1.030) Urine Protein Neg (Negative) Urine Glucose (UA) 4+ H (Normal) Urine Ketones Negative (Negative) Urine Blood Neg (Negative) Urine Nitrate Negative (Negative) Urine Bilirubin 1+ H (Negative) Urine Urobilinogen Norm (Negative) mg/dL Ur Leukocyte Tammy ase Negative (Negative) Urine RBC Not Reportable Urine WBC Not Reportable Ur Squamous Epith Cells Not Reportable Amorphous Sediment Not Reportable Urine Bacteria Not Reportable 07/29/21 07/29/21 07/29/21 Range/Units 20:24 20:57 21:12 WBC 10.1 H Corrected WBC RBC 4.57 Hgb 14.3 Hct 48.5 MCV 106.1 H MCH 31.3 MCHC 29.5 L RDW 13.3 Plt Count 194 MPV 13.1 H Gran % Neut % (Auto) 64.2 Lymph % (Auto) 22.1 [place] % (Auto) 8.2 Eos % (Auto) 4.1 Baso % (Auto) 0.6 Neut # (Auto) 6.46 Lymph # (Auto) 2.2 [place] # (Auto) 0.8 Eos # (Auto) 0.4 Baso # (Auto) 0.1 Absolute Gran (aut o) Nucleated RBC % (a uto) 0 Nucleated RBCs # 0.0 Specimen Type Sample Site ABG pH (7.35-7.45) ABG pCO2 (35-45) mmHg ABG pO2 (80.0-100.0) mmH g ABG HCO3 (22-26) mmol/L ABG Base Excess (-2.0-2.0) mmol/ L Andrea Test Hematocrit (42-52) % O2 Delivery Device FiO2 % Cyber Forensic Specialist ID Sodium (136-145) mmol/L Potassium (3.5-5.1) mmol/L Chloride (98-107) mmol/L Carbon Dioxide (22-29) mmol/L Anion Gap (5-19) BUN (8-23) mg/dL Creatinine (0.7-1.2) mg/dL GFR Calculation Glucose (65-115) mg/dL POC Glucose 381 H 365 H (70-110) mg/dL Calculated Osmolal ity (285-295) mOsm/k g Calcium (8.5-10.5) mg/dL Total Bilirubin (0.15-1.2) mg/dL AST (0-40) U/L ALT (0-41) U/L Alkaline Phosphata se (40-130) IU/L Troponin T Gen 5 n g/L (0-15) ng/L Total Protein (6.6-8.7) g/dL Albumin (3.5-5.2) g/dL Globulin (1.3-4.6) g/dL Lipase (13-60) U/L Urine Color (Yellow) Urine Appearance (CLEAR) Urine pH (5-7) Ur Specific Gravit y (1.005-1.030) Urine Protein (Negative) Urine Glucose (UA) (Normal) Urine Ketones (Negative) Urine Blood (Negative) Urine Nitrate (Negative) Urine Bilirubin (Negative) Urine Urobilinogen (Negative) mg/dL Ur Leukocyte Tammy ase (Negative) Urine RBC Urine WBC Ur Squamous Epith Cells Amorphous Sediment Urine Bacteria Discharge Plan Discharge Patient Disposition: Admitted As Inpatient Clinical Impression: Hyperglycemia, Weakness, Acute kidney injury superimposed on CKD, Elevated troponin I level Condition: Stable Discharge Diet: Advance as tolerated Discharge Activity: Resume usual activity Coding Level of Care Code ED Director Call Center Sales for Jeanne Davila
[2021-07-29 20:18] LABS: Charge for UA Resulting for Rev
[2021-07-29 20:20] LABS: Glucose Urine UA 4+ (Normal); Protein Urine Neg (Negative); Specific Gravity, Urine 1.015 (1.005-1.030); Urine Appearance Clear (CLEAR); Urine Color Straw (Yellow); pH Urine 5 (5-7)
[2021-07-29 20:21] LABS: Bilirubin Urine 1+ (Negative); Blood Urine Neg (Negative); Ketones Urine Negative (Negative); Leukocyte Esterase Urine Negative (Negative); Nitrate Urine Negative (Negative); Urobilinogen Urine Norm (Negative)
[2021-07-29 20:22] LABS: Add Urine Microscopic? NO
[2021-07-29 20:23] LABS: Add Urine Culture? No
[2021-07-29 20:27] LABS: Glucose Point of Care 381 mg/dL (70-110)
[2021-07-29] MEDS: sodium chloride 0.9% 500 ML 999 ML IV (20:31)
[2021-07-29 20:39] LABS: Alanine Aminotransferase 13 U/L (0-41); Albumin Level 3.7 g/dL (3.5-5.2); Alkaline Phosphatase 120 IU/L (40-130); Blood Urea Nitrogen 80 mg/dL (8-23); Calcium 9.3 mg/dL (8.5-10.5); Carbon Dioxide 24 mmol/L (22-29); Chloride 109 mmol/L (98-107); Globulin 3.7 g/dL (1.3-4.6); Glucose 373 mg/dL (65-115); Lipase 116 U/L (13-60); Osmolality Calculated 347 mOsm/kg (285-295); Sodium 149 mmol/L (136-145); Total Bilirubin 0.3 mg/dL (0.15-1.2); Total Protein 7.4 g/dL (6.6-8.7)
[2021-07-29 20:40] LABS: Anion Gap 21.6 (5-19); Aspartate Amino Transferase 14 U/L (0-40); Potassium 5.6 mmol/L (3.5-5.1)
[2021-07-29 20:44] LABS: Troponin T (5th) Once 177 ng/L (0-15)
[2021-07-29 21:03] LABS: Basophils # 0.1 10^3/uL (0.0-0.1); Basophils % 0.6 %; Eosinophils # 0.4 10^3/uL (0.0-0.8); Eosinophils % 4.1 %; Hematocrit 48.5 % (42.0-52.0); Hemoglobin 14.3 g/dL (11.7-16.6); Lymphocytes # 2.2 10^3/uL (0.8-4.8); Lymphocytes % 22.1 %; Mean Corpuscular HGB Conc 29.5 g/dL (30.0-36.0); Mean Corpuscular Hemoglobin 31.3 pg (28.0-34.0); Mean Corpuscular Volume 106.1 fl (80-94); Mean Platelet Volume 13.1 fL (7.4-10.4); Monocytes # 0.8 10^3/uL (0.2-0.9); Monocytes % 8.2 %; Neutrophils # 6.46 10^3/uL (1.8-7.7); Neutrophils % 64.2 %; Nucleated Red Blood Cells % 0 %; Platelet Count 194 10^3/cmm (130-400); Red Blood Count 4.57 10^6/uL (4.1-5.3); Red Cell Distribution Width 13.3 % (12.1-15.1); White Blood Count 10.1 10^3/uL (4.0-10.0)
--- NOTE | 2021-07-29 21:12 | CTR_ITS ---
PROCEDURE INFORMATION: Exam: CT Head Without Contrast Exam date and time: 07/29/2021 9:12 PM Age: 85 years old Clinical indication: Altered mental status/memory loss; Confusion or disorientation; Patient HX: AMS. Confusion. Elevated blood sugar. History of prior stroke. TECHNIQUE: Imaging protocol: Computed tomography of the head without contrast. Radiation optimization: All CT scans at this facility use at least one of these dose optimization techniques: automated exposure control; mA and/or kV adjustment per patient size (includes targeted exams where dose is matched to clinical indication); or iterative reconstruction. COMPARISON: CT head wo con* [id number] 04/02/2021 1:56 PM RADIATION DOSE METRICS: Total DLP (mGy-cm): 2327.34 FINDINGS: Brain: No hemorrhage. Moderate diffuse cerebral atrophy and sequela of chronic small vessel ischemic disease, similar in appearance to prior exam. No mass effect/midline shift. Cerebral ventricles: No ventriculomegaly. Paranasal sinuses: Visualized sinuses are unremarkable. No fluid levels. Mastoid air cells: Visualized mastoid air cells are well aerated. Bones/joints: Unremarkable. No acute fracture. Soft tissues: Unremarkable. CT/CT head wo con* [id number] IMPRESSION: 1. No acute intracranial abnormality. 2. Similar moderate diffuse cerebral atrophy and sequela of chronic small vessel ischemic disease. Radiation Dose CTDIVOL = (mGy): DLP = 2327.34 (mGy-cm)
[2021-07-29 21:16] LABS: Slide Review Slide Review Perform
[2021-07-29 21:16] LABS: Glucose Point of Care 365 mg/dL (70-110)
--- NOTE | 2021-07-29 21:43 | XRR_ITS ---
PROCEDURE INFORMATION: Exam: XR Chest Exam date and time: 07/29/2021 9:43 PM Age: 85 years old Clinical indication: Shortness of breath; Prior surgery; Patient HX: SOB, high blood sugar TECHNIQUE: Imaging protocol: XR of the chest. Views: 1 view. COMPARISON: CR XR chest 1V portable [id number] 04/02/2021 1:44 PM FINDINGS: Lungs: No consolidation. Pleural spaces: Unremarkable. No pleural effusion. No pneumothorax. Heart/Mediastinum: Sequela of prior CABG with sternotomy wires and mediastinal clips. No cardiomegaly. Bones/joints: Visualized osseous structures are intact. XR/XR chest 1V portable [id number] IMPRESSION: No acute findings.
[2021-07-29 22:03] LABS: Ketone (Acetest) Serum Negative (Negative)
[2021-07-29 22:10] LABS: C Reactive Protein 4.1 mg/L (0.0-4.9); Creatine Phosphokinase 121 U/L (39-308); Lactic Sepsis W/Reflex 3.6 mmol/L (0.5-2.2)
[2021-07-29] MEDS: aspirin 325 mg Tablet PO (22:11)
--- NOTE | 2021-07-29 22:11 | P.HP_ITS ---
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 [facility] advises that he has history of type 2 diabetes mellitus, and recently patient's physicians have been trying to control his blood sugars, as his A1c was improving, they stopped his Metformin, however his blood sugar started to elevate, and they have tried multiple rounds of short acting insulin, and his blood sugars got as high as the 400s. This morning his blood sugars were in the 300s, according to nursing staff, he just was not acting appropriately, was more withdrawn, was not responding appropriate to commands, was more fatigued and weak, no fevers, no cough, he is received both Covid vaccines, no history of UTIs, his appetite also declined. This afternoon, they try to feed him, and he had a choking episode so he was brought to [facility] for further evaluation. Here in [facility], patient is noted to be in acute renal failure, creatinine 2.2, potassium 5.6, serum sodium 149, baseline troponin 177, EKG no acute ST-T wave changes, lactic acid 3.6, CT head no acute stroke, no acute bleed, chest x-ray no pneumonia, UA no UTI. Currently patient is alert, he does follow commands, when asked him how he is doing he said he tells me he is doing good, he does have weakness in the right upper extremity, with some degree of a flexion contracture of the right hand, weakness in the right lower extremity, has movement of the left upper and left lower extremity, does track, pupils equal round reactive to light. Hospitalist team was called for admission, due to elevated troponins, altered mental status Review of Systems General: Reports: ROS unobtainable due to medical condition and ROS unobtainable due to mental status Medications/Allergies Home Medications Medication Instructions Recorded Confirmed Last Taken Type acetaminophen [Tylenol] 650 mg PO Q4H PRN 06/03/20 04/02/21 Unknown History atorvastatin 80 mg PO BEDTIME 06/03/20 04/02/21 04/01/21 History bisacodyl [Dulcolax (bisacodyl)] 10 mg ID DAILY PRN 06/03/20 04/02/21 Unknown History clopidogrel [Plavix] 75 mg PO DAILY 06/03/20 04/02/21 04/02/21 History diclofenac sodium [Voltaren] 4 g TOPICAL TID PRN 06/03/20 04/02/21 Unknown History furosemide [Lasix] 20 mg PO DAILY 06/03/20 04/02/21 04/02/21 History losartan 50 mg PO DAILY 06/03/20 04/02/21 04/02/21 History magnesium hydroxide [Milk of 30 ml PO DAILY PRN 06/03/20 04/02/21 Unknown History Magnesia] omega 9-[id number]-oki-fish oil [Fish Oil] 1 cap PO DAILY 06/03/20 04/02/21 04/02/21 History tamsulosin [Flomax] 0.4 mg PO BEDTIME 06/03/20 04/02/21 04/01/21 History aspirin 325 mg PO DAILY #60 tab 01/22/21 04/02/21 04/02/21 Rx metformin 500 mg PO BID 01/22/21 04/02/21 04/02/21 History metoprolol succinate 50 mg PO DAILY 01/22/21 04/02/21 04/02/21 History hydrocodone-acetaminophen 1 tab PO Q4H PRN 04/02/21 04/02/21 Unknown History indomethacin 50 mg PO BID PRN 04/02/21 04/02/21 Unknown History nitroglycerin [Nitrostat] 0.4 mg SUBLINGUAL Q5M PRN 04/02/21 04/02/21 Unknown History polyethylene glycol 3350 [Miralax] 17 g PO DAILY 04/02/21 04/02/21 04/02/21 History sodium phosphates [Fleet Enema] 118 ml ID DAILY PRN 04/02/21 04/02/21 Unknown History Allergies Allergy/AdvReac Type Severity Reaction Status Date / Time morphine Allergy Unknown Verified 06/03/20 11:46 PFSH Acute PFSH: Medical History CVA (cerebral vascular accident) Diabetes Hyperlipidemia Hypertension Surgical History History of coronary artery bypass graft 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 Family History (Updated 07/29/21 @ 22:19 by Cristobal Paz MD) Other CAD (coronary artery disease) Diabetes Social History Smoking and tobacco status: former smoker Vitals/I&O/Wt Last Vital Signs Temp 97 F L 07/29/21 20:04 Pulse 73 07/29/21 21:52 Resp 18 07/29/21 21:52 BP 146/85 07/29/21 21:52 Pulse Ox 97 07/29/21 21:52 Weight last 48 hrs Weight 95.98 kg Physical Exam Const: COMMON NORMALS: no acute distress GENERAL APPEARANCE: frail appearing ORIENTATION/CONSCIOUSNESS: Yes awake, Yes oriented to person and Yes confused; not oriented to place and not oriented to time Chest: COMMONS NORMALS: normal inspection of the chest Resp: COMMON NORMALS: normal respiratory effort, No retractions, No use of accessory muscles and clear to auscultation bilaterally Cardio: COMMON NORMALS: regular rate, regular rhythm, S1 normal heart sound present and S2 normal heart sound present GI: COMMON NORMALS: Normal to inspection, nondistended, normoactive bowel sounds present, Soft to palpation and non-tender : COMMON NORMALS: Yes no CVA tenderness Extremity: COMMON NORMALS: capillary refill normal, no clubbing, cyanosis or edema and no pedal edema Neuro: OTHER: Right upper extremity flexion contracture, right lower extremity weakness, left upper extremity strength 3 out of 5, right lower extremity strength 3 out of 5, is able to squeeze my fingers on the left, right is weak, able to move head right to left, able to track me, pupils equal round reactive to light, no facial droop, can say a few words here that I cannot discern any facial droop Data : 07/29/21 20:57 07/29/21 19:50 A&P Assessment and plan (1) Altered mental status: -Multifactorial, from hyperglycemia, dehydration, EARLINE, NSTEMI, possible aspiration pneumonitis/pneumonia, possible TIA -CT of the head no acute stroke -Has had 2 CVAs that we know of, 1 back in December 2020 with right-sided weakness, and another episode in March 2021 -Carotid artery ultrasound done on 01/2021 no hemodynamically significant stenosis -UA unremarkable for UTI -Chest x-ray no focal pneumonia -Lactic acid elevated at 3.6, likely secondary dehydration Plan: -Admit to cardiac stepdown unit -Neurochecks, aspiration precautions, seizure precautions, NIH stroke scale -Start Zosyn for antibiotic coverage monitor respiratory status closely -Continue IV fluids -Continue aspirin, statin, Plavix -Speech therapy, physical therapy, keep n.p.o. for now -Patient DNR -Heparin for DVT prophylaxis NSTEMI -No complaints of chest pain -Baseline troponin 177 -EKG no acute ST-T wave changes -Likely supply demand ischemia from dehydration, hypoglycemia, aspiration event, but given age, cardiac history cannot rule out underlying cardiovascular etiology Plan -Continue aspirin, statin, Plavix, beta-azael -Continue heparin drip -Cardiac echo -Serial EKGs, serial troponins, telemetry monitoring Acute kidney injury on chronic kidney disease -Creatinine 2.2, likely secondary to dehydration -Continue IV hydration, monitor urine output, monitor creatinine Hyperkalemia, likely secondary to EARLINE, has received insulin, monitor potassium in the morning, telemetry monitoring Lactic acid 2.6, likely secondary dehydration, will continue to monitor Weakness, altered mental status, secondary to above we will continue to monitor, 's Type 2 diabetes mellitus, insulin sliding scale, Levemir 5 units at bedtime CABG, CAD History of CVA x2, right-sided weakness, nonambulatory, requires assistance for transfers, can feed himself, can say basic yes or no questions, can follow commands, no known history of dementia Status: Acute (2) Hyperglycemia: Status: Acute (3) Acute kidney injury superimposed on CKD: Status: Acute (4) Elevated troponin I level: Status: Acute (5) Weakness: Status: Acute Attestations Medical Necessity Statement*: Patient requires hospitalization for altered mental status, NSTEMI, EARLINE, dehydration, requiring inpatient mission, greater than 2 midnights Coding Level of Care Code Acute Kettle Firer for Chg Fwd Diagnoses Altered mental status R41.82 Hyperglycemia R73.9 Acute kidney injury superimposed on CKD N17.9; N18.9 Elevated troponin I level R77.8 Weakness R53.1
[2021-07-29 22:17] LABS: Procalcitonin 0.17 ng/mL (0-0.5)
[2021-07-29 22:34] LABS: Troponin 5 2HR Delta 33.9 ABS# (0-10)
[2021-07-29 22:35] LABS: Troponin 5 2HR 210.9 ng/L (0-15)
[2021-07-29 22:41] LABS: Partial Thromboplastin Time 23.5 SECONDS (23.9-36.7)
[2021-07-29] MEDS: heparin 5,000 unit/mL INJ 1 mL 4000 UNIT IVP (23:00)
[2021-07-29] MEDS: heparin drip 25,000 UNIT/500 ML PREMIX 26.87 UNIT IV (23:03)
[2021-07-29 23:42] LABS: Reflex Lactate Order REFLEX LACTIC ORDERD
[2021-07-30] VITALS (10 sets, daily range): BP systolic 140–179; BP diastolic 70–103; PULSE 60–82; RESP 15–20; TEMP 36.7–37; O2SAT 95–98
[2021-07-30 00:14] LABS: Glucose Point of Care 284 mg/dL (70-110)
--- NOTE | 2021-07-30 00:19 | USCV_ITS ---
Eric Fields Age: 85 Gender: M : 1935 Exam Date: 07/30/2021 07:05 Ordering Phys: Cristobal Paz MD Technologist: Lalitha Rolon Exam Location: [facility] [place] Indication: nstemi BP: 147 / 83 HR: 78 Rhythm: Sinus Technical Quality: Technically difficult study MEASUREMENTS (Male / Female) Normal Values 2D ECHO LV Diastolic Diameter PLAX 4.6 cm 4.2 - 5.9 / 3.9 - 5.3 cm LV Systolic Diameter PLAX 3.9 cm IVS Diastolic Thickness 1.2 cm 0.6 - 1.0 / 0.6 - 0.9 cm IVS Systolic Thickness 1.4 cm LVPW Diastolic Thickness 1.4 cm 0.6 - 1.0 / 0.6 - 0.9 cm LVPW Systolic Thickness 1.6 cm LVOT Diameter 2.0 cm LV Ejection Fraction 2D Teich 29.7 % LV Ejection Fraction MOD 2C 14.2 % LV Ejection Fraction 2C AL 16.4 % LA Diameter 2.9 cm LA Width 3.5 cm LA Height 4.0 cm RA Width 2.8 cm RA Height 4.9 cm Aorta at Sinotubular Diameter 2.4 cm M-MODE Aortic Annulus Diameter 3.8 cm LA Ao Ratio MM 0.8 DOPPLER AV Peak Velocity 121.0 cm/s LVOT Peak Velocity 77.0 cm/s AV Area Cont Eq vti 1.7 cm squared AV Area Cont Eq pk 2.1 cm squared TR Peak Velocity 201.0 cm/s TR Peak Gradient 16.2 mmHg PV Peak Velocity 84.0 cm/s RV Acceleration Time 0.1 s RV Ejection Time 0.3 s RV AcT/ET 0.3 FINDINGS Left Ventricle Normal left ventricular cavity size. Moderately decreased left ventricular systolic function. Left ventricular ejection fraction is estimated at 45 %. There appeared to be septal bounce, which could be secondary to interventricular conduction delay or postoperative state. Please note that due to suboptimal quality study left ventricle ejection fraction may be underestimated Right Ventricle The right ventricle is normal in size and function. RVSP could not be calculated due to incomplete tricuspid regurgitation velocity profile. Right Atrium The right atrium is normal in size. Left Atrium The left atrium is normal in size. Mitral Valve Moderately thickened mitral valve. Moderate mitral annular calcification. No mitral valve stenosis. No mitral valve regurgitation. Aortic Valve Moderate aortic valve calcification. No aortic valve stenosis. No aortic valve regurgitation. Tricuspid Valve Structurally normal tricuspid valve without significant stenosis or regurgitation. Pulmonic Valve Structurally normal pulmonic valve without significant stenosis. There is no pulmonic regurgitation. Pericardium Normal pericardium without effusion. Aorta Normal ascending aorta dimension. CONCLUSIONS 1-Normal left ventricular cavity size. Moderately decreased left ventricular systolic function. Left ventricular ejection fraction is estimated at 45 %. There appeared to be septal bounce, which could be secondary to interventricular conduction delay or postoperative state. Please note that due to suboptimal quality study left ventricle ejection fraction may be underestimated. 2-There is no pericardial effusion. 3-No significant valve abnormalities. 4-The right ventricle is normal in size and function. RVSP could not be calculated due to incomplete tricuspid regurgitation velocity profile. 5-No significant change since the prior echocardiogram study of 01 October 2019. Pernell Duarte MD (Electronically Signed) Final Date: 30 July 2021 18:55 S
[2021-07-30 00:46] LABS: Estmated Average Glucose 235; Hemoglobin A1C 9.8 % (4.0-6.0)
[2021-07-30 00:46] LABS: Lactic Acid level (Lactate) 1.6 mmol/L (0.5-2.2)
[2021-07-30 00:55] LABS: Chol HDL Ratio 5.15 mg/dL (1.0-5.00); Cholesterol 134 mg/dL (0-200); HDL Cholesterol 26 mg/dL (60-100); LDL Cholesterol Calculated 67 mg/dL (50-129); LDL HDL Ratio 2.58 RATIO (0.00-3.22); Triglycerides 203 mg/dL (0-150)
[2021-07-30] MEDS: sodium chloride 0.9% 1,000 ML 75 ML IV ×2 (00:56→18:41)
[2021-07-30] MEDS: piperacillin-tazobactam 3.375 GM in sodium chloride 0.9% (plus) 50 ML IV ×3 (00:56→16:34)
--- NOTE | 2021-07-30 01:15 | PC.NURSE ---
Difficult to thoroughly assess orientation status due to patient having very unclear speech and at times aphasic. Unable to complete some parts of the admission assessment.
[2021-07-30 01:45] LABS: Thyroid Stimulating Hormone 1.67 uIU/mL (0.27-4.20)
--- NOTE | 2021-07-30 03:08 | ECG_ITS ---
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1935 Requested By: Marianne Bardales Order Number: [id number] Reading MD: MARI ENGLISH Measurements Intervals [place] Rate: 69 P: -70 AK: 115 QRS: -34 QRSD: 140 T: 74 QT: 424 QTc: 456 Interpretive Statements JUNCTIONAL RHYTHM LEFT AXIS DEVIATION [QRS AXIS < -30] LEFT BUNDLE BRANCH BLOCK [120+ ms QRS DURATION, 80+ ms Q/S IN V1/V2, 85+ ms R IN I/aVL/V5/V6] Compared to ECG 07/29/2021 19:23:59 Junctional rhythm now present Left-axis deviation now present Left bundle-branch block now present Sinus rhythm no longer present Left ventricular hypertrophy no longer present Myocardial infarct finding no longer present Electronically Signed On 07-30-2021 19:29:34 CDT by MARI ENGLISH [email or web address]
[2021-07-30 05:03] LABS: Basophils # 0.1 10^3/uL (0.0-0.1); Basophils % 0.7 %; Eosinophils # 0.5 10^3/uL (0.0-0.8); Eosinophils % 4.9 %; Hematocrit 45.2 % (42.0-52.0); Hemoglobin 13.7 g/dL (11.7-16.6); Lymphocytes # 2.8 10^3/uL (0.8-4.8); Lymphocytes % 26.1 %; Mean Corpuscular HGB Conc 30.3 g/dL (30.0-36.0); Mean Corpuscular Hemoglobin 31.8 pg (28.0-34.0); Mean Corpuscular Volume 104.9 fl (80-94); Mean Platelet Volume 13.2 fL (7.4-10.4); Monocytes # 0.8 10^3/uL (0.2-0.9); Monocytes % 7.9 %; Neutrophils # 6.34 10^3/uL (1.8-7.7); Neutrophils % 59.3 %; Nucleated Red Blood Cells % 0 %; Platelet Count 169 10^3/cmm (130-400); Red Blood Count 4.31 10^6/uL (4.1-5.3); Red Cell Distribution Width 13.3 % (12.1-15.1); White Blood Count 10.7 10^3/uL (4.0-10.0)
[2021-07-30 05:22] LABS: Partial Thromboplastin Time 94.3 SECONDS (23.9-36.7)
[2021-07-30 05:28] LABS: Alanine Aminotransferase 10 U/L (0-41); Albumin Level 3.4 g/dL (3.5-5.2); Alkaline Phosphatase 111 IU/L (40-130); Aspartate Amino Transferase 11 U/L (0-40); Blood Urea Nitrogen 69 mg/dL (8-23); Calcium 8.8 mg/dL (8.5-10.5); Carbon Dioxide 28 mmol/L (22-29); Chloride 115 mmol/L (98-107); Globulin 2.9 g/dL (1.3-4.6); Glucose 236 mg/dL (65-115); Magnesium 2.5 mg/dL (1.7-2.3); Osmolality Calculated 344 mOsm/kg (285-295); Phosphorus 4.6 mg/dL (2.5-4.5); Sodium 153 mmol/L (136-145); Total Bilirubin 0.5 mg/dL (0.15-1.2); Total Protein 6.3 g/dL (6.6-8.7)
[2021-07-30 05:29] LABS: Lactate (Lactic Acid level) 1.6 mmol/L (0.5-2.2)
[2021-07-30 05:32] LABS: Anion Gap 14.9 (5-19); Potassium 4.9 mmol/L (3.5-5.1)
[2021-07-30 05:38] LABS: Slide Review Slide Review Perform
[2021-07-30 05:47] LABS: Troponin 5 6HR 214.8 ng/L (0-15); Troponin 5 6HR Delta 3.9 ng/L (0-12)
[2021-07-30 06:15] LABS: Glucose Point of Care 225 mg/dL (70-110)
--- NOTE | 2021-07-30 06:30 | PC.NURSE ---
Shift Note Frequent safety and comfort rounds continue. Orders and/or nursing care completed as indicated. Patient monitored for response to intervention and treatment(s). Will continue to monitor.
[2021-07-30 06:31] LABS: Creatine Phosphokinase 120 U/L (39-308); NT Pro B Type Natriuretic Pept 114 pg/mL (0-450); Procalcitonin 0.16 ng/mL (0-0.5)
--- NOTE | 2021-07-30 06:32 | PC.NURSE ---
Contacted Dr. Paz to notify that patient is asking to drink water. Ordered to do bedside speech eval.
[2021-07-30] MEDS: famotidine 20 mg Tablet PO ×2 (09:09→18:43)
[2021-07-30] MEDS: losartan 50 mg Tablet PO (09:09)
[2021-07-30] MEDS: metoprolol succinate ER (24 HR) 25 mg Tablet PO (09:11)
[2021-07-30] MEDS: clopidogrel 75 mg Tablet PO (09:12)
[2021-07-30] MEDS: aspirin 81 mg EC Tablet PO (09:12)
--- NOTE | 2021-07-30 09:23 | PC.CHAP ---
Pastoral Care Encounter/Spiritual Assessment Type of Contact [] Declined looping inspector visit [] Patient/Family/Request visit [] Outpatient visit [] Follow-up visit [] Physician referral [] Code/Alert [x] Routine visit [] Staff referral [] Actively dying [] Patient sleeping [] Family support [] [] Out of room [] Palliative care [] [] Receiving care in room [] Pre-surgical visit [] Trauma [] Long length of stay [] ICU visit [] Other: Relational/Emotional Strength [] Patient feels connected with others/family/visitors/staff [] Distress [] Loneliness/isolation [] Abandonment Spirituality of Patient [] Person of Natalee [] Attends Gnosticist of their Natalee [] Believes in Prayer [] Reads Bible or Islam materials [] There are Spiritual issues to be addressed Software Licensing Analyst Interventions [x] Prayer [x] Active listening [x] Non-anxious presence [x] Spiritual/emotional support [] Crisis/trauma care [] Spiritual counseling [] Bereavement support [] Provided bereavement packet [] Provided Bible/devotional materials [] Provided toy/stuffed animal, coloring book to patient or family member [] Provided Communion [] Anointing/[place] [] Salvation [x] Completed spiritual assessment [] Other: Impact on Illness or Injury [] Angry [] Fearful [] Anxious [] Often cries [] Exhaustion [] Unable to work [] Unable to attend yazidi [] Unable to walk/stand [] Unable to read [] Unable to drive [] Unable to eat/drink [] Unable to sleep [] Unable to be with family [] Patient intubated [] Other: Summary prayed with patient to lower sugar and give him peace... seems stressed and very uneasy Time spent with patient 10 min
--- NOTE | 2021-07-30 11:27 | P.PN_ITS ---
Subjective Subjective: Interval history: Patient has expressive dysphagia Able to follow my commands Has right-sided weakness left-sided facial droop Pending PT OT speech evaluation Hypertensive fluid pending at the bedside with heparin Vitals/I&O/Wt Last Vital Signs Temp 98.2 F 07/30/21 08:00 Pulse 82 07/30/21 08:00 Resp 18 07/30/21 08:00 BP 179/103 07/30/21 09:09 Pulse Ox 95 07/30/21 04:29 07/29/21 07/30/21 07/30/21 22:59 06:59 14:59 Intake Total 238.538 / 238.538 Output Total 250 / 250 Balance -11.462 / -11.462 Weight last 48 hrs Weight 97.296 kg Weight 95.98 kg Physical Exam Narrative: EXAM NARRATIVE: Sitting comfortably in his bed Hypertensive EOMI, PERRLA Left-sided facial droop Right hand contracture noted Weakness of right side of his body Following commands Expressive dysphagia S1, S2 variable clinically does not look fluid overloaded Soft abdomen Distended with obesity No extremity trace edema Saturating well on room air no audible stridor or wheezing Data : 07/30/21 04:49 07/30/21 04:49 Micro: Microbiology 07/29/21 22:07 Blood Culture - Preliminary Blood SPECIMEN COLLECTED 07/29/21 22:05 Blood Culture - Preliminary Blood SPECIMEN COLLECTED A&P Assessment and plan (1) Altered mental status: Status: Acute (2) Hyperglycemia: Status: Acute (3) Weakness: Status: Acute (4) Acute kidney injury superimposed on CKD: Status: Acute (5) Elevated troponin I level: Status: Acute (6) Expressive dysphasia: Status: Acute Additional A&P Information 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 who 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 with altered mental status however at baseline nonambulatory and requires a lot of assistance 2-3 person assist at baseline 1-2 word answers however today has expressive aphasia history of recurrent CVA Patient is able to follow my commands Has left-sided facial droop right-sided weakness contracture of hand noted Speech evaluation pending No active signs of meningitis or encephalitis, I do suspect CVA with underlying metabolic encephalopathy to be the underlying cause, not a candidate for dialysis Patient seems to be gradually declining H&P CODE STATUS reviewed Non-STEMI: Most likely type II NV patient is not complaining of active chest pain he is hypertensive EKG without ischemic or infarctive changes Will finish 48 hours on heparin We will follow up on echo If I see any wall motion abnormalities will request cardiology evaluation Hyperglycemia without DKA Pending speech evaluation Sliding scale Acute on chronic kidney disease secondary to dehydration creatinine improving with IV fluid resuscitation Anticipating improvement with IV fluids for now Aspiration pneumonitis chest x-ray unremarkable patient is afebrile Once he is able to tolerate diet I will switch him to Augmentin and discontinue Zosyn Currently saturating well on room air Hypertensive: Likely related to underlying kidney disease and IV fluids, will give him hydralazine DNR/DNI We will call family today Nurse updated Attestations 2 Medical Necessity Statement*: Continue medical management Time Spent in Patient Care: 16 - 35 minutes Coding Level of Care Code Acute Technical Stenographer for Kileyg Fwd Diagnoses Altered mental status R41.82 Hyperglycemia R73.9 Weakness R53.1 Acute kidney injury superimposed on CKD N17.9; N18.9 Elevated troponin I level R77.8 Expressive dysphasia R47.02
[2021-07-30 12:00] LABS: Glucose Point of Care 199 mg/dL (70-110)
[2021-07-30] MEDS: hyDRALAzine 20 mg/mL INJ 1 mL 10 MG IVP (16:32)
[2021-07-30 17:32] LABS: Glucose Point of Care 216 mg/dL (70-110)
[2021-07-30 21:08] LABS: Partial Thromboplastin Time 33.8 SECONDS (23.9-36.7)
[2021-07-30 22:20] LABS: Glucose Point of Care 197 mg/dL (70-110)
[2021-07-30] MEDS: heparin drip 25,000 UNIT/500 ML PREMIX 17.01 UNIT IV (23:00)
[2021-07-30] MEDS: insulin glargine 100 units/1 mL 5 UNIT SUBCUT (23:29)
[2021-07-30] MEDS: heparin 5,000 unit/mL INJ 1 mL IV (23:30)
[2021-07-31] VITALS (7 sets, daily range): BP systolic 144–150; BP diastolic 66–84; PULSE 58–86; RESP 18; TEMP 36.6–36.8; O2SAT 95–97
[2021-07-31] MEDS: atorvastatin 40 mg Tablet PO ×2 (00:05→21:32)
[2021-07-31] MEDS: piperacillin-tazobactam 3.375 GM in sodium chloride 0.9% (plus) 50 ML IV ×2 (02:06→09:06)
[2021-07-31] MEDS: sodium chloride 0.9% 1,000 ML 75 ML IV (02:07)
[2021-07-31 04:53] LABS: Basophils # 0.1 10^3/uL (0.0-0.1); Basophils % 0.6 %; Eosinophils # 0.5 10^3/uL (0.0-0.8); Eosinophils % 5.9 %; Hematocrit 42.7 % (42.0-52.0); Hemoglobin 13.2 g/dL (11.7-16.6); Lymphocytes # 2.2 10^3/uL (0.8-4.8); Mean Corpuscular HGB Conc 30.9 g/dL (30.0-36.0); Mean Corpuscular Volume 103.4 fl (80-94); Mean Platelet Volume 13.5 fL (7.4-10.4); Monocytes # 0.8 10^3/uL (0.2-0.9); Monocytes % 9.2 %; Neutrophils # 5.19 10^3/uL (1.8-7.7); Neutrophils % 58.3 %; Nucleated Red Blood Cells % 0 %; Platelet Count 157 10^3/cmm (130-400); Red Blood Count 4.13 10^6/uL (4.1-5.3); Red Cell Distribution Width 13.4 % (12.1-15.1); White Blood Count 8.9 10^3/uL (4.0-10.0)
[2021-07-31 05:11] LABS: Lactate (Lactic Acid level) 1.2 mmol/L (0.5-2.2)
[2021-07-31 05:55] LABS: Partial Thromboplastin Time 111.4 SECONDS (23.9-36.7)
[2021-07-31 06:25] LABS: Glucose Point of Care 111 mg/dL (70-110)
[2021-07-31 06:41] LABS: Anion Gap 12.9 (5-19); Blood Urea Nitrogen 41 mg/dL (8-23); Calcium 8.1 mg/dL (8.5-10.5); Carbon Dioxide 26 mmol/L (22-29); Chloride 118 mmol/L (98-107); Creatine Phosphokinase 314 U/L (39-308); Glucose 103 mg/dL (65-115); Osmolality Calculated 326 mOsm/kg (285-295); Potassium 3.9 mmol/L (3.5-5.1); Sodium 153 mmol/L (136-145)
[2021-07-31 06:45] LABS: Procalcitonin 0.12 ng/mL (0-0.5)
[2021-07-31] MEDS: clopidogrel 75 mg Tablet PO (09:06)
[2021-07-31] MEDS: losartan 50 mg Tablet PO (09:06)
[2021-07-31] MEDS: metoprolol succinate ER (24 HR) 25 mg Tablet PO (09:06)
[2021-07-31] MEDS: famotidine 20 mg Tablet PO ×2 (09:06→18:00)
[2021-07-31] MEDS: aspirin 81 mg EC Tablet PO (09:06)
[2021-07-31 11:25] LABS: Glucose Point of Care 261 mg/dL (70-110)
--- NOTE | 2021-07-31 12:03 | P.PN_ITS ---
Subjective Subjective: Interval history: Patient on complaining active chest pain, on dysphagia diet Afebrile to finish 48 hours of ACS overnight did experience sundowning and agitation he was try to get out of the bed Vitals/I&O/Wt Last Vital Signs Temp 98.2 F 07/31/21 00:00 Pulse 86 07/31/21 08:00 Resp 18 07/31/21 08:00 BP 144/66 07/31/21 09:06 Pulse Ox 95 07/31/21 08:00 07/30/21 07/31/21 07/31/21 22:59 06:59 14:59 Intake Total 422.412 / 2131.879 977.984 / 3109.863 Output Total 200 / 200 Balance 422.412 / 2131.879 777.984 / 2909.863 Weight last 48 hrs Weight 97.296 kg Weight 95.98 kg Physical Exam Narrative: EXAM NARRATIVE: Patient has expressive aphasia Able to move his upper and lower extremities Understand my commands very well and does try to answer my questions S1, S2 variable Abdomen distended no signs of peritonitis Legs no edema Saturating well on room air Data : 07/31/21 04:33 07/31/21 05:50 Micro: Microbiology 07/29/21 22:07 Blood Culture - Preliminary Blood NEGATIVE TO DATE 07/29/21 22:05 Blood Culture - Preliminary Blood NEGATIVE TO DATE A&P Assessment and plan (1) Expressive dysphasia: Status: Acute (2) Altered mental status: Status: Acute (3) Hyperglycemia: Status: Acute (4) Weakness: Status: Acute (5) Acute kidney injury superimposed on CKD: Status: Acute (6) Elevated troponin I level: Status: Acute Additional A&P Information NSTEMI: Severe coronary disease 01/29 lesions were stented as per his son finish 48 hours on heparin and then switched to DVT prophylaxis Expressive aphasia secondary to CVA: Dysphagia diet Hyperglycemia: We will increase insulin regimen still hyperglycemic EARLINE secondary dehydration: Improving with fluid resuscitation 1.4 creatinine today Aspiration pneumonitis has been afebrile, DC IV antibiotics and switch him to Augmentin Hypernatremia with 6 L of fluid deficit start D5 LR DNR/DNI, son is updated Dysphagia diet Attestations Medical Necessity Statement*: Plan to discharge him back to senior living tomorrow after finishing ACS protocol Time Spent in Patient Care: 16 - 35 minutes Coding Level of Care Code Acute Instrument Repairer Helper for Chg Fwd Diagnoses Expressive dysphasia R47.02 Altered mental status R41.82 Hyperglycemia R73.9 Weakness R53.1 Acute kidney injury superimposed on CKD N17.9; N18.9 Elevated troponin I level R77.8
--- NOTE | 2021-07-31 12:34 | PC.NUTR ---
Nutrition note: RD was approached by pt's son requesting strawberry jello. This RD checked diet order and noted honey thickened liquids, returned with orange Magic Cup for pt and explained that jello is not honey thick. Pt and son were agreeable to this, however son expressed concern with Magic Cup raising blood glucose. This pt is not on consistent carb diet at this time and has not triggered for RD assessment per policy. Will assess at 5D LOS or as needed.
[2021-07-31] MEDS: dextrose 5% 1,000 ML 75 ML IV (14:19)
[2021-07-31] MEDS: heparin 5,000 unit/mL INJ 1 mL 5000 UNIT SUBCUT ×2 (14:20→21:32)
[2021-07-31 16:42] LABS: Glucose Point of Care 255 mg/dL (70-110)
[2021-07-31] MEDS: insulin glargine 100 units/1 mL 10 UNIT SUBCUT (18:00)
[2021-07-31] MEDS: amoxicillin-clav 875-125 mg Tablet 1 TAB PO (18:00)
[2021-07-31 22:06] LABS: Glucose Point of Care 273 mg/dL (70-110)
[2021-08-01] VITALS: BP 148/54; PULSE 58; RESP 18; O2SAT 95
[2021-08-01 04:00] VITALS: BP 150/78; PULSE 61; RESP 18; O2SAT 95
[2021-08-01] MEDS: heparin 5,000 unit/mL INJ 1 mL 5000 UNIT SUBCUT (04:16)
[2021-08-01] MEDS: dextrose 5% 1,000 ML 75 ML IV (04:16)
[2021-08-01 05:24] VITALS: PULSE 89
[2021-08-01 07:16] LABS: Glucose Point of Care 151 mg/dL (70-110)
[2021-08-01 07:56] LABS: Blood Urea Nitrogen 29 mg/dL (8-23); Calcium 8.2 mg/dL (8.5-10.5); Carbon Dioxide 27 mmol/L (22-29); Chloride 112 mmol/L (98-107); Creatine Phosphokinase 203 U/L (39-308); Glucose 180 mg/dL (65-115); Osmolality Calculated 314 mOsm/kg (285-295); Sodium 147 mmol/L (136-145)
[2021-08-01 07:57] LABS: Anion Gap 12.1 (5-19); Lactate (Lactic Acid level) 1.6 mmol/L (0.5-2.2); Potassium 4.1 mmol/L (3.5-5.1)
[2021-08-01 08:00] VITALS: BP 132/72; PULSE 83; RESP 16; O2SAT 96
[2021-08-01 08:03] LABS: Procalcitonin 0.11 ng/mL (0-0.5)
[2021-08-01 08:22] VITALS: BP 136/70
[2021-08-01] MEDS: clopidogrel 75 mg Tablet PO (08:22)
[2021-08-01] MEDS: aspirin 81 mg EC Tablet PO (08:22)
[2021-08-01] MEDS: famotidine 20 mg Tablet PO (08:22)
[2021-08-01] MEDS: losartan 50 mg Tablet PO (08:22)
[2021-08-01] MEDS: amoxicillin-clav 875-125 mg Tablet 1 TAB PO (08:22)
[2021-08-01] MEDS: metoprolol succinate ER (24 HR) 25 mg Tablet PO (08:22)
--- NOTE | 2021-08-01 09:05 | P.DS_ITS ---
Discharge Providers Date of Admission: 07/29/21 21:14 Date of Discharge: August 01, 2021 Attending Provider at Admission: Cristobal Paz MD Attending Provider at Discharge: Pernell Moya MD Primary Care Provider: Fran Garcia DO Diagnoses at Discharge Discharge Diagnosis (1) Expressive dysphasia: Status: Acute (2) Altered mental status: Status: Acute (3) Hyperglycemia: Status: Acute (4) Weakness: Status: Acute (5) Acute kidney injury superimposed on CKD: Status: Acute (6) Elevated troponin I level: Status: Acute Reason for Visit Reason for Visit: HIGH BLOOD SUGAR Hospital Course Hospital Course 85-year-old male with history of recurrent CVA with expressive dysphagia, underlying cognitive impairment, established coronary disease as per the family angiogram in [place] revealed 17 lesions and 3 were stented, presented to the ER with chief complaint of worsening aspiration and encephalopathy. In the ER he was diagnosed with NSTEMI, EARLINE, dehydration. He did finish 48 hours of anticoagulation however EKG not consistent with ischemic or infarctive changes. His EARLINE and encephalopathy resolved with IV fluid resuscitation. As per the family he was back to his baseline after IV fluid resuscitation. He did experience expressive aphasia, stroke work-up did not show acute pathological findings, he was put on dysphagia diet, speech evaluation was requested. Did discuss goals of care with his brother, [place], is DNR/DNI and in case of further decline in his functional status he might opt for comfort measures. Physical Exam Narrative: EXAM NARRATIVE: Patient was laying comfortably in his bed Saturating well on room air Has expressive aphasia Right-sided weakness Has some strength on left side he is able to lift arm and lift his left leg against gravity EOMI, PERRLA S1, S2 Soft abdomen No audible stridor or wheezing Discharge Data Data Completed and Pending: Completed Studies During Hospitalization Category Date Time Status CT head wo con* 7 0450 Urgent Cat Scan 07/29/21 21:12 Completed XR chest 1V cristel ble [id number] Stat Exams 07/29/21 21:43 Completed CV. echo complete * [id number] Routine Ultrasound 07/30/21 00:19 Completed Pending at discharge Category Date Time Status Bacterial Antigen Stat Lab 07/29/21 21:53 Uncollected Blood Culture Sta t Lab 07/29/21 22:07 Results COVID [SARS Covid -2 Antigen] Routin e Lab 08/01/21 08:42 Uncollected Sputum Culture an d Gram Stain Stat Lab 07/29/21 21:53 Uncollected Labs from last 24 hours 08/01/21 08/01/21 08/01/21 07:28 07:28 07:09 Sodium 147 H Potassium 4.1 Chloride 112 H Carbon Dioxide 27 Anion Gap 12.1 BUN 29 H Creatinine 1.3 H GFR Calculation Not Reportable Glucose 180 H POC Glucose 151 H Calculated Osmolal ity 314 H Lactate 1.6 Calcium 8.2 L Creatine Kinase 203 Procalcitonin 0.11 07/31/21 07/31/21 07/31/21 20:35 16:39 11:22 Sodium Potassium Chloride Carbon Dioxide Anion Gap BUN Creatinine GFR Calculation Glucose POC Glucose 273 H 255 H 261 H Calculated Osmolal ity Lactate Calcium Creatine Kinase Procalcitonin Vitals: Last Vital Signs Temp 97.9 F 07/31/21 20:00 Pulse 83 08/01/21 08:00 Resp 16 08/01/21 08:00 BP 136/70 08/01/21 08:22 Pulse Ox 96 08/01/21 08:00 Discharge Plan Discharge Patient Disposition: Xfer SNF Condition: Stable Prescriptions: New Augmentin 875-125 mg tablet 1 tab PO BID 5 Days Qty: 10 RF: 0 Continued losartan 50 mg Tablet 50 mg PO DAILY RF: 0 atorvastatin 80 mg Tablet 80 mg PO BEDTIME RF: 0 clopidogrel [Plavix] 75 mg Tablet 75 mg PO DAILY RF: 0 magnesium hydroxide [Milk of Magnesia] 400 mg/5 mL Suspension 30 ml PO DAILY PRN (Reason: Constipation) RF: 0 tamsulosin [Flomax] 0.4 mg Capsule 0.4 mg PO BEDTIME RF: 0 bisacodyl [Dulcolax (bisacodyl)] 10 mg Suppository 10 mg MO DAILY PRN (Reason: Constipation) RF: 0 acetaminophen [Tylenol] 325 mg Capsule 650 mg PO Q4H PRN (Reason: Pain) RF: 0 diclofenac sodium [Voltaren] 1 % Gel 4 g TOPICAL TID PRN (Reason: Pain) RF: 0 omega 9-nhk-aer-fish oil [Fish Oil] 300-1,000 mg Capsule 1 cap PO DAILY RF: 0 hydrocodone-acetaminophen 5-325 mg Tablet 1 tab PO Q4H PRN (Reason: Pain) RF: 0 Fleet Enema 19-7 gram/118 mL Enema 118 ml MO DAILY PRN (Reason: Constipation) RF: 0 nitroglycerin [Nitrostat] 0.4 mg Tablet, Sublingual 0.4 mg SUBLINGUAL Q5M PRN (Reason: Chest Pain) RF: 0 polyethylene glycol 3350 [Miralax] 17 gram/dose Powder 17 g PO DAILY RF: 0 clonidine HCl 0.1 mg Tablet 0.1 mg PO TID PRN (Reason: Blood Pressure) RF: 0 aspirin 81 mg Tablet 81 mg PO DAILY RF: 0 metformin 500 mg Tablet 500 mg PO DAILY RF: 0 metoprolol succinate 50 mg Tablet Extended Release 24 Hr 50 mg PO DAILY RF: 0 Changed Lasix 20 mg Tablet 40 mg PO Q48H PRN (Reason: weight gain>3lbs) Qty: 0 RF: 0 Discontinued indomethacin 50 mg Capsule 50 mg PO BID PRN (Reason: gout) RF: 0 Discharge Orders: Discharge Order (Routine); Ordered 08/01/21 Ordered By: Pernell Moya Referrals: Fran Garcia DO [Primary Care Provider] - Discharge Diet: Soft Mechanical Discharge Activity: Wheelchair as instructed Patient Instructions: Amoxicillin/Clavulanate Potassium (By mouth), Dysphagia, Hyperglycemia, Myocardial Infarction (DC), Aspiration Pneumonia (DC), Post Heart Attack Stoplight Activity Restrictions/Additional Instructions: You were treated for aspiration pneumonia, your kidney function improved after IV fluids high troponin secondary to bad kidney function, your echo was normal Please finish Augmentin in next 5 days You will stay on dysphagia diet because of your previous history of stroke Discharge Attestations Time Spent in Discharge Care*: less than 30 min Quality Metrics Clinical Quality Measures During this hospital stay, did patient experience: None Coding Level of Care Code Acute Chg FW DC note Diagnoses Expressive dysphasia R47.02 Altered mental status R41.82 Hyperglycemia R73.9 Weakness R53.1 Acute kidney injury superimposed on CKD N17.9; N18.9 Elevated troponin I level R77.8
[2021-08-01 10:22] LABS: SARS Covid-2 Antigen Negative (Negative)
[2021-08-01 11:19] LABS: Glucose Point of Care 261 mg/dL (70-110)
[2021-08-01] MEDS: insulin glargine 100 units/1 mL 10 UNIT SUBCUT (11:19)
[2021-08-01 11:32] VITALS: BP 136/70; PULSE 68; RESP 20; TEMP 36.5; O2SAT 95
--- NOTE | 2021-08-01 12:13 | PC.SOCIAL ---
IMM Update Page 2 updated. Reviewed with patient. Initialed, dated and timed and placed copy in the chart.
--- NOTE | 2021-08-01 14:52 | PC.CHAP ---
Pastoral Care Encounter/Spiritual Assessment Type of Contact [] Declined computer designer visit [] Patient/Family/Request visit [] Outpatient visit [xx] Follow-up visit [] Physician referral [] Code/Alert [] Routine visit [] Staff referral [] Actively dying [xx] Patient sleeping [] Family support [] [] Out of room [] Palliative care [] [] Receiving care in room [] Pre-surgical visit [] Trauma [] Long length of stay [] ICU visit [] Other: Relational/Emotional Strength [] Patient feels connected with others/family/visitors/staff [] Distress [] Loneliness/isolation [] Abandonment Spirituality of Patient [] Person of Natalee [] Attends Episcopalian of their Natalee [] Believes in Prayer [] Reads Bible or Yarsanism materials [] There are Spiritual issues to be addressed Quality Control Interventions [] Prayer [] Active listening [] Non-anxious presence [] Spiritual/emotional support [] Crisis/trauma care [] Spiritual counseling [] Bereavement support [] Provided bereavement packet [] Provided Bible/devotional materials [] Provided toy/stuffed animal, coloring book to patient or family member [] Provided Communion [] Anointing/[place] [] Salvation [] Completed spiritual assessment [] Other: Impact on Illness or Injury [] Angry [] Fearful [] Anxious [] Often cries [] Exhaustion [] Unable to work [] Unable to attend quaker [] Unable to walk/stand [] Unable to read [] Unable to drive [] Unable to eat/drink [] Unable to sleep [] Unable to be with family [] Patient intubated [] Other: Summary Patient in medicated sleep. Try follow up later. Time spent with patient
--- NOTE | 2021-08-01 15:23 | PC.NURSE ---
Discharge Note Patient discharged to [[facility]] via [stretcher] accompanied by [transportation staff]. Discharge instructions reviewed with patient and/or home office representative. Mobile pharmacy medications and/or prescriptions provided. Belongings/home medications returned.
--- NOTE | 2021-08-04 12:21 | PC.SOCIAL ---
discharge follow up call made[facility] doing well. is participating in speech therapy. no questions or concerns voiced.
== END 2021-08-01 14:00 | disposition skilled nursing facility (03) | DRG 280 ==
LOC: ER 22:56 → CSU 23:36
PROVIDERS: Admitting Provider Family Medicine; Emergency Provider Emergency Medicine; PCP Family Medicine; Visit Provider Internal Medicine
DX: I21.4 Non-ST elevation (NSTEMI) myocardial infarction (principal); J69.0 Pneumonitis due to inhalation of food and vomit; N17.9 Acute kidney failure, unspecified; I25.10 Atherosclerotic heart disease of native coronary artery without angina pectoris; E11.65 Type 2 diabetes mellitus with hyperglycemia; E78.5 Hyperlipidemia, unspecified; E11.22 Type 2 diabetes mellitus with diabetic chronic kidney disease; N18.9 Chronic kidney disease, unspecified; E86.0 Dehydration; E87.5 Hyperkalemia; R47.02 Dysphasia; Z86.73 Personal history of transient ischemic attack (TIA), and cerebral infarction without residual deficits; Z87.891 Personal history of nicotine dependence; Z95.1 Presence of aortocoronary bypass graft; Z79.4 Long term (current) use of insulin; Z66 Do not resuscitate; Z20.822 Contact with and (suspected) exposure to COVID-19
CPT/HCPCS: 36415; 36416; 36600; 70450; 71045; 80048; 80053; 80061; 81001; 81003; 82009; 82550; 82803; 82962; 83036; 83605; 83690; 83735; 83880; 84100; 84145; 84443; 84484; 85025; 85730; 86140; 87040; 87426; 92523; 92610; 93005; 93306; 96365; 96366; 96372; 96375; 97110; 97162; 97530; 99291; J0360; J1644; J1815 ×2; J2543; J7030; J7040

== ENCOUNTER 2022-08-25 20:29 | Observation (INO) | payer MEDICARE, OTHER, SELFPAY ==
[2022-08-25 20:35] VITALS: BP 162/77; PULSE 70; RESP 18; TEMP 36.2; O2SAT 95; BMI 27.1
--- NOTE | 2022-08-25 20:42 | W.ED.GENADLT ---
HPI - General Adult General: Chief complaint: General Medical Stated complaint: OD ON INSULIN Time Seen by Provider: 08/25/22 20:40 History of Present Illness: Patient is an 86-year-old male with history of type 2 diabetes presenting to the emergency room with accidental insulin injection. Around 1920, patient was at a shelter he was supposed to get 10 units of Levemir however instead received 68 units by accident. Patient was then brought to the emergency room for further evaluation. The shelter, patient received 2 putting cups and initially had a glucose of 160 shortly after receiving insulin. When EMS was called, patient had a closed over 300. Patient has a glucose 253 upon arrival. Patient is AAOx3, with no focal complaints at this time. Onset: earlier today Duration:ongoing Location:shelter Severity: moderate Associated symptoms: Deny chest pain, dyspnea, nausea, rash, palpitations or vomiting Review of Systems Const: Denies: fever(s) or chills Eyes: Denies: change in vision ENMT: Denies: mouth pain Card: Denies: chest pain or palpitations Resp: Denies: dyspnea or non-productive cough GI: Denies: abdominal pain, nausea, vomiting or diarrhea : Denies: dysuria Musc: Denies: extremity pain Skin/Breast: Denies: rash or new lesions Neuro: Denies: weakness in extremities Psych: Reports: other (Normal mood) Michele/Lymph: Denies: easy bruising PFSH ED PFSH: Medical History CVA (cerebral vascular accident) Diabetes Hyperlipidemia Hypertension Surgical History History of coronary artery bypass graft 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 Family History (Updated 07/29/21 @ 22:19 by Cristobal Paz MD) Other CAD (coronary artery disease) Diabetes Social History Smoking and tobacco status: former smoker Physical Exam Const: COMMON NORMALS: alert HENMT: COMMON NORMALS: atraumatic HEAD & SCALP: atraumatic MOUTH: moist mucous membranes not abnormal Eye: COMMON NORMALS: EOMs intact bilaterally and conjunctivae normal CONJUNCTIVA: Yes conjunctivae normal Neck/C-Spine: COMMON NORMALS: full ROM and supple Resp: COMMON NORMALS: normal respiratory effort and clear to auscultation bilaterally AUSCULTATION: clear to auscultation bilaterally Cardio: COMMON NORMALS: regular rate RATE: regular rate GI: COMMON NORMALS: Soft to palpation and non-tender PALPATION: Yes Soft to palpation OTHER: No focal TTP. NO guarding rebound, guarding, rigidity. No CVA tenderness to percussion. Neg Garcia/Neg McBurney's point tenderness, no suprabupic tenderness to palpation. Extremity: COMMON NORMALS: full ROM Neuro: SENSORIUM/ORIENTATION: Yes alert MOTOR EXAM: No Abnormal motor strength present and Other motor observations present (no focal motor deficits) Psych: COMMON NORMALS: speech normal SPEECH: Yes normal speech MOOD & AFFECT: Yes euthymic mood Course Vital Signs: Vital signs: Vital Signs Temperature 97.1 F L 08/25/22 20:35 Pulse Rate 70 08/25/22 20:35 Respiratory Rate 18 08/25/22 20:35 Blood Pressure 162/77 08/25/22 20:35 Pulse Oximetry 95 08/25/22 20:35 Oxygen Delivery Me thod 08/25/22 20:35 MDM - General Adult Medical Decision Making Patient is an 86-year-old male with history of type 2 diabetes presenting to the emergency room with accidental insulin injection. Patient took additional 50 units of Levemir than his dose. Given the fact the patient has a long-acting insulin with a half-life of 18 hours, we will obtain blood work and serially monitor patient. Patient will be admitted to the hospital for observation for 18 hours for accidental Levemir ingestion. Patient is HDS, AAOx3. Dispositoin: admission Discharge Plan Discharge Condition: Stable Prescriptions: No Action losartan 50 mg Tablet 50 mg PO DAILY atorvastatin 80 mg Tablet 80 mg PO BEDTIME clopidogrel [Plavix] 75 mg Tablet 75 mg PO DAILY magnesium hydroxide [Milk of Magnesia] 400 mg/5 mL Suspension 30 ml PO DAILY PRN (Reason: Constipation) tamsulosin [Flomax] 0.4 mg Capsule 0.4 mg PO BEDTIME bisacodyl [Dulcolax (bisacodyl)] 10 mg Suppository 10 mg ME DAILY PRN (Reason: Constipation) acetaminophen [Tylenol] 325 mg Capsule 650 mg PO Q4H PRN (Reason: Pain) diclofenac sodium [Voltaren] 1 % Gel 4 g TOPICAL TID PRN (Reason: Pain) omega 0-uuy-gkv-fish oil [Fish Oil] 300-1,000 mg Capsule 1 cap PO DAILY hydrocodone-acetaminophen 5-325 mg Tablet 1 tab PO Q4H PRN (Reason: Pain) Fleet Enema 19-7 gram/118 mL Enema 118 ml ME DAILY PRN (Reason: Constipation) nitroglycerin [Nitrostat] 0.4 mg Tablet, Sublingual 0.4 mg SUBLINGUAL Q5M PRN (Reason: Chest Pain) polyethylene glycol 3350 [Miralax] 17 gram/dose Powder 17 g PO DAILY clonidine HCl 0.1 mg Tablet 0.1 mg PO TID PRN (Reason: Blood Pressure) Rx Instructions: for BP greater than 180 diastolic and systolic greater than 100. aspirin 81 mg Tablet 81 mg PO DAILY Lasix 20 mg Tablet 40 mg PO Q48H PRN (Reason: weight gain>3lbs) Qty: 0 0RF metformin 500 mg Tablet 500 mg PO DAILY metoprolol succinate 50 mg Tablet Extended Release 24 Hr 50 mg PO DAILY Referrals: Fran Garcia, [Primary Care Provider] - Coding Level of Care Code ED Tunnel Kiln Repairer for Chg Fwd Exam Comprehensive
--- NOTE | 2022-08-25 21:41 | ECG_ITS ---
[facility] Test Date: 2022-08-25 Pat Name: Eric Fields Department: Room: Gender: Male Cashier Assistant: : 1935 Requested By: Marianne Bardales Order Number: [id number] Jiménez MD: Bryn Aj M.D. Measurements Intervals Clark Rate: 70 P: 84 NC: 204 QRS: -31 QRSD: 122 T: 46 QT: 379 QTc: 411 Interpretive Statements SINUS RHYTHM LEFT AXIS DEVIATION [QRS AXIS < -30] MODERATE INTRAVENTRICULAR CONDUCTION DELAY [110+ ms QRS DURATION] VOLTAGE CRITERIA FOR LVH [MEETS CRITERIA IN ONE OF: R(aVL), S(V1), R(V5), R(V5/V6)+S(V1)] NONSPECIFIC T-WAVE ABNORMALITY Compared to ECG 07/30/2021 05:56:48 Intraventricular conduction delay now present Left ventricular hypertrophy now present T-wave abnormality now present Junctional rhythm no longer present Left bundle-branch block no longer present Electronically Signed On 08-26-2022 8:24:18 CDT by Bryn Aj M.D. [id number]
--- NOTE | 2022-08-25 21:42 | PM.HP ---
Providers/Chief Complaint Primary Care Provider: Fran Garcia DO Chief Complaint: OD ON INSULIN History of Present Illness Eric Fields is a 86 year old male with PMH of CABG, type 2 diabetes mellitus, hypertension, hyperlipidemia, history of CVA back in December 2020, with right-sided weakness [facility] came in with chief complaint of accidental long acting insulin overdose. Patient is on 10 units of Levemir Routinely, he took 60U at evening time around 6 pm . Patient was brought in ER for the same. Random blood sugar on arrival 239. Patient was alert awake oriented, denied any chest pain shortness of breath , palpitation dizziness. His other vitals and labs have been reviewed. Review of Systems General: Reports: 10 or more systems reviewed and unremarkable except in HPI and below Const: Denies: fever(s), chills, body aches, change in appetite or diaphoresis Card: Denies: palpitations, edema, swelling of feet/ankles, dyspnea on exertion, orthopnea or leg pain with exertion Resp: Denies: dyspnea, productive cough, wheezing or pain on inspiration GI: Denies: abdominal pain, nausea, vomiting, diarrhea or constipation : Denies: flank pain or difficulty urinating Musc: Denies: back pain, extremity pain or extremity swelling Neuro: Denies: headache(s), difficulty walking or confusion Medications/Allergies Home Medications Medication Instructions Recorded Confirmed Last Taken Type acetaminophen 325 mg capsule 650 mg PO Q4H PRN Pain 06/03/20 07/30/21 Unknown History (Tylenol) atorvastatin 80 mg tablet 80 mg PO BEDTIME 06/03/20 07/30/21 04/01/21 History bisacodyl 10 mg rectal suppository 10 mg NH DAILY PRN Constipation 06/03/20 07/30/21 Unknown History (Dulcolax (bisacodyl)) clopidogrel 75 mg tablet (Plavix) 75 mg PO DAILY 06/03/20 07/30/21 04/02/21 History diclofenac sodium 1 % topical gel 4 g topical TID PRN Pain 06/03/20 07/30/21 Unknown History (Voltaren) losartan 50 mg tablet 50 mg PO DAILY 06/03/20 07/30/21 04/02/21 History magnesium hydroxide 400 mg/5 mL 30 ml PO DAILY PRN Constipation 06/03/20 07/30/21 Unknown History oral suspension (Milk of Magnesia) omega 1-mwe-cyi-fish oil 300 1 cap PO DAILY 06/03/20 07/30/21 04/02/21 History mg-1,000 mg capsule (Fish Oil) tamsulosin 0.4 mg capsule (Flomax) 0.4 mg PO BEDTIME 06/03/20 07/30/21 04/01/21 History metformin 500 mg tablet 500 mg PO DAILY 01/22/21 07/30/21 04/02/21 History metoprolol succinate 50 mg 50 mg PO DAILY 01/22/21 07/30/21 04/02/21 History tablet,extended release 24 hr hydrocodone 5 mg-acetaminophen 325 1 tab PO Q4H PRN Pain 04/02/21 07/30/21 Unknown History mg tablet nitroglycerin 0.4 mg sublingual 0.4 mg sublingual Q5M PRN Chest 04/02/21 07/30/21 Unknown History tablet (Nitrostat) Pain polyethylene glycol 3350 17 17 g PO DAILY 04/02/21 07/30/21 04/02/21 History gram/dose oral powder (Miralax) sodium phosphates 19 gram-7 118 ml [place] DAILY PRN Constipation 04/02/21 07/30/21 Unknown History gram/118 mL enema (Fleet Enema) aspirin 81 mg tablet 81 mg PO DAILY 07/30/21 07/30/21 Unknown History clonidine HCl 0.1 mg tablet 0.1 mg PO TID PRN Blood Pressure 07/30/21 07/30/21 Unknown History furosemide 20 mg tablet (Lasix) 40 mg PO Q48H PRN weight gain>3lbs 08/01/21 07/30/21 04/02/21 Rx #0 tabs Allergies Allergy/AdvReac Type Severity Reaction Status Date / Time morphine Allergy Unknown Verified 06/03/20 11:46 PFSH Acute PFSH: Medical History (Updated 08/25/22 @ 21:45 by Juwan Peck MD) CVA (cerebral vascular accident) Diabetes Hyperlipidemia Hypertension Surgical History History of coronary artery bypass graft S/P percutaneous transluminal angioplasty (SIGNALMAN) with stent placement Family History (Updated 07/29/21 @ 22:19 by Cristobal Paz MD) Other CAD (coronary artery disease) Diabetes Social History Smoking and tobacco status: former smoker Vitals/I&O/Wt Last Vital Signs Temp 97.1 F L 08/25/22 20:35 Pulse 70 08/25/22 20:35 Resp 18 08/25/22 20:35 BP 162/77 08/25/22 20:35 Pulse Ox 95 08/25/22 20:35 O2 Del Method 08/25/22 20:35 Weight last 48 hrs Weight 90.718 kg Physical Exam Const: COMMON NORMALS: patient oriented x3 Resp: COMMON NORMALS: normal respiratory effort, No retractions, No use of accessory muscles and clear to auscultation bilaterally EFFORT & INSPECTION: Yes symmetric chest movement AUSCULTATION: clear to auscultation bilaterally Cardio: COMMON NORMALS: regular rate, regular rhythm, S1 normal heart sound present, S2 normal heart sound present, No gallops present (Cardio), No murmurs present (Cardio), No rub (Cardio) and Peripheral pulses 2+ throughout RATE: regular rate RHYTHM: regular rhythm HEART SOUNDS: S1 normal heart sound present and S2 normal heart sound present PERIPHERAL PULSES: Peripheral pulses 2+ throughout GI: COMMON NORMALS: Normal to inspection, nondistended, normoactive bowel sounds present, Soft to palpation, non-tender, No hepatosplenomegaly present and no masses AUSCULTATION: Yes normoactive bowel sounds PALPATION: Yes Soft to palpation and Yes No hepatosplenomegaly present RECTAL EXAM: Yes deferred Extremity: COMMON NORMALS: no clubbing, cyanosis or edema and no pedal edema Neuro: COMMON NORMALS: patient oriented x3 Data : 08/26/22 00:57 08/26/22 00:57 A&P Assessment and plan (1) CVA (cerebral vascular accident): (2) Diabetes: (3) Hypertension: (4) Accidental overdose of insulin: (5) CKD (chronic kidney disease): Plan Hansel Fields is a 86 year old male with PMH of CABG, type 2 diabetes mellitus, hypertension, hyperlipidemia, history of CVA back in December 2020, with right-sided weakness [facility] came in with chief complaint of accidental long acting insulin overdose. Patient is on 10 units of Levemir Routinely, he took 60U at evening time around 6 pm. Assessment: Accidental insulin overdose Diabetes h/o CABG Hypertension History of CVA Likely chronically elevated troponin: Patient currently denies any chest pain Plan: Monitor fingerstick glucose every 2 hours On adult hypoglycemia protocol Continue telemetry monitoring Continue to hold insulin Continue aspirin statin Plavix CODE STATUS:AND DVT PPX : On Lovenox Attestations Medical Necessity Statement*: Patient is to be in hospital for monitoring of accidental insulin overdose. Coding Level of Care Code Acute Caretaker Grounds for [facility] Fwd Exam Detailed Diagnoses CVA (cerebral vascular accident) I63.9 Diabetes E11.9 Hypertension I10 Accidental overdose of insulin T38.3X1A CKD (chronic kidney disease) N18.9
[2022-08-25 22:28] LABS: Glucose Point of Care 194 mg/dL (70-110)
[2022-08-25] MEDS: dextrose 5%-sod chloride 0.45% 1,000 ML 50 ML IV (22:35)
[2022-08-25] MEDS: enoxaparin 40 mg/0.4 mL Syringe SUBCUT (22:35)
[2022-08-25 22:36] VITALS: BP 166/81; PULSE 64; RESP 19; O2SAT 93
[2022-08-25 22:39] LABS: Basophils # 0.1 10^3/uL (0.0-0.1); Basophils % 0.7 %; Eosinophils # 0.5 10^3/uL (0.0-0.8); Hematocrit 42.9 % (42.0-52.0); Hemoglobin 13.4 g/dL (11.7-16.6); Lymphocytes # 2.1 10^3/uL (0.8-4.8); Lymphocytes % 31.7 %; Mean Corpuscular HGB Conc 31.2 g/dL (30.0-36.0); Mean Corpuscular Hemoglobin 30.7 pg (28.0-34.0); Mean Corpuscular Volume 98.4 fl (80-94); Mean Platelet Volume 12.3 fL (7.4-10.4); Monocytes # 0.7 10^3/uL (0.2-0.9); Neutrophils # 3.27 10^3/uL (1.8-7.7); Neutrophils % 48.7 %; Nucleated Red Blood Cells % 0 %; Platelet Count 211 10^3/cmm (130-400); Red Blood Count 4.36 10^6/uL (4.1-5.3); Red Cell Distribution Width 15.7 % (12.1-15.1); White Blood Count 6.7 10^3/uL (4.0-10.0)
[2022-08-25 23:01] LABS: Anion Gap 15.5 (5-19); Blood Urea Nitrogen 28 mg/dL (8-23); Calcium 9.3 mg/dL (8.5-10.5); Carbon Dioxide 27 mmol/L (22-29); Chloride 101 mmol/L (98-107); Glucose 239 mg/dL (65-115); Osmolality Calculated 301 mOsm/kg (285-295); Potassium 4.5 mmol/L (3.5-5.1); Sodium 139 mmol/L (136-145)
[2022-08-25 23:15] VITALS: BMI 28.6
[2022-08-25 23:15] LABS: Troponin T (5th) Once 109 ng/L (0-15)
[2022-08-26] VITALS (8 sets, daily range): BP systolic 154–182; BP diastolic 75–89; PULSE 59–73; RESP 17–24; TEMP 36.3–36.8; O2SAT 94–98
[2022-08-26 00:27] LABS: Glucose Point of Care 344 mg/dL (70-110)
[2022-08-26 01:03] LABS: Basophils # 0.1 10^3/uL (0.0-0.1); Basophils % 0.7 %; Eosinophils # 0.6 10^3/uL (0.0-0.8); Eosinophils % 8.5 %; Hematocrit 41.2 % (42.0-52.0); Hemoglobin 12.9 g/dL (11.7-16.6); Lymphocytes # 2.1 10^3/uL (0.8-4.8); Lymphocytes % 28.9 %; Mean Corpuscular HGB Conc 31.3 g/dL (30.0-36.0); Mean Corpuscular Hemoglobin 30.4 pg (28.0-34.0); Mean Corpuscular Volume 97.2 fl (80-94); Mean Platelet Volume 11.8 fL (7.4-10.4); Monocytes # 0.7 10^3/uL (0.2-0.9); Monocytes % 10.1 %; Neutrophils % 50.7 %; Nucleated Red Blood Cells % 0 %; Platelet Count 204 10^3/cmm (130-400); Red Blood Count 4.24 10^6/uL (4.1-5.3); Red Cell Distribution Width 15.6 % (12.1-15.1); White Blood Count 7.3 10^3/uL (4.0-10.0)
[2022-08-26 01:31] LABS: Anion Gap 13.2 (5-19); Blood Urea Nitrogen 27 mg/dL (8-23); Calcium 9.3 mg/dL (8.5-10.5); Carbon Dioxide 29 mmol/L (22-29); Chloride 102 mmol/L (98-107); Glucose 163 mg/dL (65-115); Osmolality Calculated 299 mOsm/kg (285-295); Potassium 4.2 mmol/L (3.5-5.1); Sodium 140 mmol/L (136-145)
[2022-08-26 02:25] LABS: Troponin T (5th) Once 117 ng/L (0-15)
[2022-08-26 05:00] LABS: Glucose Point of Care 191 mg/dL (70-110)
[2022-08-26 06:44] LABS: Glucose Point of Care 79 mg/dL (70-110)
[2022-08-26 08:16] LABS: Glucose Point of Care 110 mg/dL (70-110)
[2022-08-26 08:16] LABS: Troponin T (5th) Once 114 ng/L (0-15)
--- NOTE | 2022-08-26 08:46 | PC.CHAP ---
Pastoral Care Encounter/Spiritual Assessment Type of Contact [] Declined fence erector visit [] Patient/Family/Request visit [] Outpatient visit [] Follow-up visit [] Physician referral [] Code/Alert [x] Routine visit [] Staff referral [] Actively dying [] Patient sleeping [] Family support [] [] Out of room [] Palliative care [] [] Receiving care in room [] Pre-surgical visit [] Trauma [] Long length of stay [] ICU visit [] Other: Relational/Emotional Strength [x] Patient feels connected with others/family/visitors/staff [] Distress [] Loneliness/isolation [] Abandonment Spirituality of Patient [x] Person of Natalee [] Attends Congregational of their Natalee [x] Believes in Prayer [] Reads Bible or Presybeterian materials [] There are Spiritual issues to be addressed Cleaning Validation Consultant Interventions [x] Prayer [x] Active listening [x] Non-anxious presence [x] Spiritual/emotional support [] Crisis/trauma care [] Spiritual counseling [] Bereavement support [] Provided bereavement packet [] Provided Bible/devotional materials [] Provided toy/stuffed animal, coloring book to patient or family member [] Provided Communion [] Anointing/[place] [] Salvation [x] Completed spiritual assessment [] Other: Impact on Illness or Injury [] Angry [] Fearful [] Anxious [] Often cries [] Exhaustion [] Unable to work [] Unable to attend amish [] Unable to walk/stand [] Unable to read [] Unable to drive [] Unable to eat/drink [] Unable to sleep [] Unable to be with family [] Patient intubated [] Other: Summary Pt unable to speak due to a stroke. Son and DIL were present and both spoke with Cleaning Validation Consultant. Pt resides in long-term and was given 2xinsulin last evening so in hospital for observation. However, hospital says there is nothing they can do and will send back to long-term. Family is frustrated with the situation. Allowed family to vent for some time. They are persons of natalee and requested prayer. Time spent with patient 15m
[2022-08-26 10:22] LABS: Glucose Point of Care 222 mg/dL (70-110)
[2022-08-26] MEDS: clopidogrel 75 mg Tablet PO (10:52)
[2022-08-26] MEDS: aspirin 81 mg EC Tablet PO (10:52)
[2022-08-26] MEDS: metoprolol succinate ER (24 HR) 50 mg Tablet PO (10:52)
--- NOTE | 2022-08-26 12:14 | PM.DCS ---
Discharge Providers Date of Admission: 08/25/22 21:30 Date of Discharge: August 26, 2022 Attending Provider at Admission: Juwan Peck MD Attending Provider at Discharge: Robert Syed Primary Care Provider: Fran Garcia DO Diagnoses at Discharge Discharge Diagnosis (1) CVA (cerebral vascular accident): Status: Acute (2) Diabetes: Status: Acute (3) Hypertension: Status: Acute (4) Accidental overdose of insulin: Status: Acute (5) CKD (chronic kidney disease): Status: Acute Reason for Visit Reason for Visit: OD ON INSULIN Hospital Course Hospital Course Pleasant 86-year-old lady with history of end-stage CAD, CABG with only partial revascularization where possible, with noted chronic ovation of troponin, DM2, HTN, HLD, CVA, residual right-sided weakness, aphasia, was inadvertently overdosed with insulin injection at intermediate facility on 05/25 evening, was monitored in the hospital with glucose coming down to 79 lowest this morning, subsequently up to 222 at 10:18 AM. He is awake, alert, tolerating oral intake well. Not in any pain or discomfort. Glucose is asked to be rechecked again prior to return to intermediate facility. Of note troponin noted chronically elevated, 114. Consider follow-up with cardiology, although from discussion with family it appears that further revascularization would not be an option. Blood pressure noted on occasion elevated while in the hospital, although may be related to stressful event, please reassess in his usual surroundings. Continue to optimize hypertension control. Physical Exam Narrative: Accompanied by family. Eating breakfast. Const: COMMON NORMALS: alert GENERAL APPEARANCE: cooperative ORIENTATION/CONSCIOUSNESS: Yes awake HENMT: COMMON NORMALS: oropharynx normal Neck/C-Spine: COMMON NORMALS: no JVD Resp: COMMON NORMALS: normal respiratory effort and clear to auscultation bilaterally AUSCULTATION: clear to auscultation bilaterally Cardio: COMMON NORMALS: no JVD, regular rhythm, S1 normal heart sound present, S2 normal heart sound present and No murmurs present (Cardio) RHYTHM: regular rhythm HEART SOUNDS: S1 normal heart sound present and S2 normal heart sound present GI: COMMON NORMALS: Normal to inspection, nondistended, normoactive bowel sounds present, Soft to palpation and non-tender PALPATION: Yes Soft to palpation Extremity: COMMON NORMALS: no joint enlargement and no pedal edema Neuro: SENSORIUM/ORIENTATION: Yes alert SPEECH: Total aphasia OTHER: Chronic weakness deficits on the right side. Skin: COMMON NORMALS: no rashes or lesions noted GENERAL SKIN EXAM: no rashes or lesions noted Discharge Data Studies Completed and Pending Pending at discharge Category Date Time Status Basic Metabolic Panel AM LABS Lab 08/27/22 04:00 Ordered Basic Metabolic Panel AM LABS Lab 08/28/22 04:00 Ordered Complete Blood Count w/Auto AM LABS Lab 08/27/22 04:00 Ordered Complete Blood Count w/Auto AM LABS Lab 08/28/22 04:00 Ordered Laboratory Results WBC 7.3 10^3/uL (4.0-10.0) 08/26/22 00:57 RBC 4.24 10^6/uL (4.1-5.3) 08/26/22 00:57 Hgb 12.9 g/dL (11.7-16.6) 08/26/22 00:57 Hct 41.2 % (42.0-52.0) L 08/26/22 00:57 MCV 97.2 fl (80-94) H 08/26/22 00:57 MCH 30.4 pg (28.0-34.0) 08/26/22 00:57 MCHC 31.3 g/dL (30.0-36.0) 08/26/22 00:57 RDW 15.6 % (12.1-15.1) H 08/26/22 00:57 Plt Count 204 10^3/cmm (130-400) 08/26/22 00:57 MPV 11.8 fL (7.4-10.4) H 08/26/22 00:57 Neut % (Auto) 50.7 % 08/26/22 00:57 Lymph % (Auto) 28.9 % 08/26/22 00:57 Kane % (Auto) 10.1 % 08/26/22 00:57 Eos % (Auto) 8.5 % 08/26/22 00:57 Baso % (Auto) 0.7 % 08/26/22 00:57 Neut # (Auto) 3.70 10^3/uL (1.8-7.7) 08/26/22 00:57 Lymph # (Auto) 2.1 10^3/uL (0.8-4.8) 08/26/22 00:57 Kane # (Auto) 0.7 10^3/uL (0.2-0.9) 08/26/22 00:57 Eos # (Auto) 0.6 10^3/uL (0.0-0.8) 08/26/22 00:57 Baso # (Auto) 0.1 10^3/uL (0.0-0.1) 08/26/22 00:57 Nucleated RBC % (auto) 0 % 08/26/22 00:57 Nucleated RBCs # 0.0 /100WBC 08/26/22 00:57 Sodium 140 mmol/L (136-145) 08/26/22 00:57 Potassium 4.2 mmol/L (3.5-5.1) 08/26/22 00:57 Chloride 102 mmol/L (98-107) 08/26/22 00:57 Carbon Dioxide 29 mmol/L (22-29) 08/26/22 00:57 Anion Gap 13.2 (5-19) 08/26/22 00:57 BUN 27 mg/dL (8-23) H 08/26/22 00:57 Creatinine 1.0 mg/dL (0.7-1.2) 08/26/22 00:57 GFR Calculation Not Reportable 08/26/22 00:57 Glucose 163 mg/dL (65-115) H 08/26/22 00:57 POC Glucose 222 mg/dL (70-110) H 08/26/22 10:18 Calculated Osmolality 299 mOsm/kg (285-295) H 08/26/22 00:57 Calcium 9.3 mg/dL (8.5-10.5) 08/26/22 00:57 Troponin T Gen 5 ng/L 114 ng/L (0-15) H* 08/26/22 07:18 Vitals Last Vital Signs Temp 98.0 F 08/26/22 11:15 Pulse 65 08/26/22 11:15 Resp 18 08/26/22 11:15 BP 182/81 08/26/22 11:15 Pulse Ox 95 08/26/22 11:15 O2 Del Method 08/26/22 11:15 Discharge Plan Discharge Patient Disposition: Xfer SNF Condition: Stable Prescriptions: Continued losartan 50 mg Tablet 50 mg PO DAILY clopidogrel [Plavix] 75 mg Tablet 75 mg PO DAILY tamsulosin [Flomax] 0.4 mg Capsule 0.4 mg PO BEDTIME bisacodyl [Dulcolax (bisacodyl)] 10 mg Suppository 10 mg AL DAILY PRN (Reason: Constipation) acetaminophen [Tylenol] 325 mg Capsule 650 mg PO Q4H PRN (Reason: Pain) hydrocodone-acetaminophen 5-325 mg Tablet 1 tab PO Q4H PRN (Reason: Pain) Fleet Enema 19-7 gram/118 mL Enema 118 ml AL DAILY PRN (Reason: Constipation) nitroglycerin [Nitrostat] 0.4 mg Tablet, Sublingual 0.4 mg SUBLINGUAL Q5M PRN (Reason: Chest Pain) polyethylene glycol 3350 [Miralax] 17 gram/dose Powder 17 g PO DAILY aspirin 81 mg Tablet 81 mg PO DAILY furosemide [Lasix] 20 mg Tablet 40 mg PO Q48H PRN (Reason: weight gain>3lbs) Qty: 0 0RF metoprolol succinate 50 mg Tablet Extended Release 24 Hr 50 mg PO DAILY ipratropium-albuterol 0.5 mg-3 mg(2.5 mg base)/3 mL Solution For Nebulization 3 ml INHALATION Q4H PRN (Reason: Shortness Of Breath) Claritin 10 mg Tablet 10 mg PO DAILY Nutritional Drink Liquid 90 ea PO TID acetaminophen 650 mg Suppository 650 mg AL Q4H PRN (Reason: Pain) Levemir Flexpen 100 unit/mL (3 mL) Insulin Pen 10 unit SUBCUT BEDTIME atropine 0.01 % Drops, Emulsion 2 - 4 ea OPHTHALMIC (EYE) Q1H PRN (Reason: Secretions) Discharge Orders: Discharge Order (Routine); Ordered 08/26/22 Ordered By: Robert Syed Referrals: Fran Garcia DO [Primary Care Provider] - 1 week Discharge Diet: Cardiac and Diabetic Discharge Activity: Resume usual activity Patient Instructions: Opioid Safety Activity Restrictions/Additional Instructions: Please resume usual diabetes treatment. Consider follow-up with cardiology with regards to troponin elevation, CAD. Discharge Attestations Time Spent in Discharge Care*: greater than 30 min Quality Metrics Clinical Quality Measures [ No reported AMI, CVA or VTE this stay] Coding Level of Care Code Acute Chg FW [place] note Diagnoses CVA (cerebral vascular accident) I63.9 Diabetes E11.9 Hypertension I10 Accidental overdose of insulin T38.3X1A CKD (chronic kidney disease) N18.9
== END 2022-08-26 17:33 | disposition skilled nursing facility (03) ==
LOC: ER 21:11 → MEDSURG 22:43
PROVIDERS: Admitting Provider Internal Medicine; Emergency Provider Emergency Medicine; PCP Family Medicine; Visit Provider Internal Medicine
DX: T38.3X1A Poisoning by insulin and oral hypoglycemic [antidiabetic] drugs, accidental (unintentional), initial encounter (principal); I25.10 Atherosclerotic heart disease of native coronary artery without angina pectoris; Z95.1 Presence of aortocoronary bypass graft; E78.5 Hyperlipidemia, unspecified; I69.851 Hemiplegia and hemiparesis following other cerebrovascular disease affecting right dominant side; Z79.4 Long term (current) use of insulin; E11.22 Type 2 diabetes mellitus with diabetic chronic kidney disease; I12.9 Hypertensive chronic kidney disease with stage 1 through stage 4 chronic kidney disease, or unspecified chronic kidney disease; N18.9 Chronic kidney disease, unspecified; Z79.82 Long term (current) use of aspirin; Z87.891 Personal history of nicotine dependence; Z82.49 Family history of ischemic heart disease and other diseases of the circulatory system; Z83.3 Family history of diabetes mellitus
CPT/HCPCS: 36415; 36416; 80048; 82962; 84484; 85025; 93005; 96372; 99285; G0378; J1650; J7799